=== PATIENT | male | born 1950 | race Caucasian/White ===

== ENCOUNTER 2018-02-06 07:37 | Inpatient (IN) | payer MEDICARE, OTHER ==
[2018-02-06 07:52] LABS: ABSOLUTE BASOPHILS # (AUTO) 0.1 10^3/uL (0.0-0.2); ABSOLUTE EOSINOPHILS # (AUTO) 0.1 10^3/uL (0.0-0.6); ABSOLUTE LYMPHOCYTES (AUTO) 4.6 10^3/uL (0.5-4.7); ABSOLUTE MONOCYTES (AUTO) 0.9 10^3/uL (0.1-1.4); ABSOLUTE NEUT (AUTO) 6.2 10^3/uL (1.7-8.2); BASOPHILS % (AUTO) 0.5 % (0-2); EOSINOPHILS % (AUTO) 0.5 % (0-6); HEMATOCRIT 25.2 % (37.9-51.0); HEMOGLOBIN 8.7 g/dL (13.5-17.0); LYMPHOCYTES % (AUTO) 38.9 % (13-45); MEAN CORPUSCULAR HEMOGLOBIN 30.5 pg (27.0-33.4); MEAN CORPUSCULAR HGB CONC 34.3 g/dL (32.0-36.0); MEAN CORPUSCULAR VOLUME 89 fl (80-97); MONOCYTES % (AUTO) 7.2 % (3-13); PLATELET COUNT 617 10^3/uL (150-450); RED BLOOD COUNT 2.84 10^6/uL (4.35-5.55); RED CELL DISTRIBUTION WIDTH 13.7 % (11.5-14.0); SEGMENTED NEUTROPHILS % (AUTO) 52.9 % (42-78); TOTAL CELLS COUNTED % (AUTO) 100 %; WHITE BLOOD COUNT 11.8 10^3/uL (4.0-10.5)
--- NOTE | 2018-02-06 07:57 | ER Document Report ---
ED General - General Stated Complaint: RECTAL BLEEDING Time Seen by Provider: 02/06/18 07:44 TRAVEL OUTSIDE OF THE [place] IN LAST 30 DAYS: No - HPI Notes: Patient is a 67-year-old male with a history of GERD, gout, hypertension, and hemorrhoids who presents to the ED complaining of having rectal bleeding over the last 4 days. Patient states that he had bleeding/stripping with a bowel movement on morning and then again on Wednesday morning. Patient states he did not have any bleeding yesterday, but woke up this morning about 4 hours ago stating that he needed to have a bowel movement and when he went to the bathroom had blood coming out. Pt reports seeing a spot of blood on the bed prior to going to the bathroom and then noting a moderate amount of blood in the toilet thereafter. The blood is bright red and he has not had any black or tarry bleeding aside from his normal as he does take iron. Patient states that he has had a history of external hemorrhoids that needed banding in laser surgery in the past. Patient states that he was feeling a little weak this morning his blood pressure was low when he was standing, but otherwise is feeling well. He has been eating and drinking without any difficulties. He is urinating normally. He has not had any associated pain. Denies any drug allergies. Denies any headache, fever, neck pain, URI, sore throat, chest pain , palpitations, syncope, cough, shortness of breath, wheeze, dyspnea, abdominal pain, nausea/vomiting/diarrhea, urinary retention, dysuria, hematuria, back pain , loss of control of bowel or bladder, numbness/tingling, muscle paralysis/ weakness, or rash. - Related Data Allergies/Adverse Reactions: No Known Allergies Allergy (Unverified 08/13/14 17:46) Past Medical History - Social History Smoking Status: Never Smoker Family History: Reviewed & Not Pertinent - Past Medical History Cardiac Medical History: Reports: Hx Hypertension - Immunizations Hx Diphtheria, Pertussis, Tetanus Vaccination: Yes Review of Systems - Review of Systems -: Yes All other systems reviewed and negative Physical Exam - Vital signs Vitals: BP 117/84 02/06/18 07:42 - Notes Notes: PHYSICAL EXAMINATION: GENERAL: Well-appearing, well-nourished and in no acute distress. HEAD: Atraumatic, normocephalic. EYES: Pupils equal round and reactive to light, extraocular movements intact, sclera anicteric, conjunctiva are normal. ENT: Nares patent and without discharge. oropharynx clear without exudates. No tonsilar hypertrophy or erythema. Moist mucous membranes. NECK: Normal range of motion, supple without lymphadenopathy LUNGS: Breath sounds clear to auscultation bilaterally and equal. No wheezes rales or rhonchi. HEART: Regular rate and rhythm without murmurs, rubs, gallops. ABDOMEN: Soft, nontender, nondistended abdomen. No guarding, no rebound. No masses appreciated. Normal bowel sounds present. No CVA tenderness bilaterally. Rectal: bright red dried blood noted. no active bleeding appreciated. stool is brown and not tarry/black. there are skin tags noted to the anus that appear secondary to previous banding. non-tender. Musculoskeletal: FROM to passive/active. Strength 5+/5. Extremities: No cyanosis, clubbing, or edema b/l. Peripheral pulses 2+. Capillary refill less than 3 seconds. NEUROLOGICAL: Cranial nerves grossly intact. Normal speech, normal gait. Normal sensory, motor exams PSYCH: Normal mood, normal affect. SKIN: Warm, Dry, normal turgor, no rashes or lesions noted. Course - Re-evaluation Re-evalutation: 02/06/18 08:07 I did review with Dr. Sheets who also eval'd the patient. Pt is anemic w/o known previous labs. We will recheck an H/H in 3 hours if patient is still in the ED. Plan to admit pending consult with Surgery as we do not have GI until wednesday. 02/06/18 08:41 [address] did speak with Dr. De Anda, Gen Surg. He states that we can admit here to our hospitalist and he can consult on the floor. I did place a call to our hospitalist and am awaiting a call back. 02/06/18 09:27 I did speak with AJITH Baptiste who accepted patient to medical floor. Pt/family in agreement. - Vital Signs Vital signs: Temp Pulse Resp BP Pulse Ox 75 18 111/62 98 02/06/18 08:56 02/06/18 09:01 02/06/18 09:01 02/06/18 09:01 - Laboratory Result Diagrams: 02/06/18 07:07 02/06/18 07:07 Laboratory results interpreted by me: 02/06/18 02/06/18 07:07 07:07 WBC 11.8 H RBC 2.84 L Hgb 8.7 L Hct 25.2 L Plt Count 617 H Chloride 108 H Glucose 155 H ALT 86 H Total Protein 5.9 L Albumin 3.3 L Discharge - Discharge Clinical Impression: Lower GI bleed Anemia Qualifiers: Anemia type: unspecified type Qualified Code(s): D64.9 - Anemia, unspecified Condition: Stable Disposition: ADMITTED INPATIENT Admitting Provider: Hospitalist - AJITH Baptiste Unit Admitted: Medical Floor Referrals: HILLARY FINLEY PA-C [Primary Care Provider] - Follow up as needed
[2018-02-06] MEDS: NORMAL SALINE 1000 ML 1,000 ML IV PRN ×3 (08:11→12:26)
[2018-02-06 08:25] LABS: ALANINE AMINOTRANSFERASE 86 U/L (21-72); ALBUMIN 3.3 g/dL (3.5-5.0); ALKALINE PHOSPHATASE 76 U/L (38-126); ANION GAP 10 (5-19); ASPARTATE AMINO TRANSFERASE 50 U/L (17-59); BILIRUBIN,DIRECT 0.2 mg/dL (0.0-0.4); BILIRUBIN,TOTAL 0.3 mg/dL (0.2-1.3); BLOOD UREA NITROGEN 16 mg/dL (7-20); CARBON DIOXIDE 24 mmol/L (22-30); CHLORIDE 108 mmol/L (98-107); GLUCOSE 155 mg/dL (75-110); POTASSIUM 4.7 mmol/L (3.6-5.0); SODIUM 142.3 mmol/L (137-145); TOTAL PROTEIN 5.9 g/dL (6.3-8.2)
[2018-02-06 10:12] LABS: APPEARANCE,URINE CLEAR; BILIRUBIN,URINE NEGATIVE (NEGATIVE); COLOR,URINE YELLOW; GLUCOSE, URINE NEGATIVE (NEGATIVE); KETONES,URINE NEGATIVE (NEGATIVE); LEUKOCYTE ESTERASE,URINE NEGATIVE (NEGATIVE); NITRITE,URINE NEGATIVE (NEGATIVE); PROTEIN,URINE NEGATIVE (NEGATIVE); URINE SPECIFIC GRAVITY 1.015; UROBILINOGEN,URINE NEGATIVE mg/dL (<2.0)
[2018-02-06] MEDS: AMLODIPINE BESYLATE 10 MG TABLET PO SCH (12:22)
[2018-02-06] MEDS: LISINOPRIL 10 MG TABLET PO SCH (12:22)
[2018-02-06] MEDS: CETIRIZINE 10 MG TABLET PO SCH (12:23)
[2018-02-06 13:07] LABS: HEMATOCRIT 19.8 % (37.9-51.0); MEAN CORPUSCULAR HEMOGLOBIN 31.5 pg (27.0-33.4); MEAN CORPUSCULAR HGB CONC 35.5 g/dL (32.0-36.0); MEAN CORPUSCULAR VOLUME 89 fl (80-97); PLATELET COUNT 409 10^3/uL (150-450); RED BLOOD COUNT 2.23 10^6/uL (4.35-5.55); RED CELL DISTRIBUTION WIDTH 13.8 % (11.5-14.0); WHITE BLOOD COUNT 10.8 10^3/uL (4.0-10.5)
[2018-02-06] MEDS ORDERED: NORMAL SALINE 250 ML IV PRN ×2 (13:17)
[2018-02-06] MEDS ORDERED: DEXTROSE 40% GEL 15 GM TUBE PO PRN ×4 (13:18→19:36)
[2018-02-06] MEDS ORDERED: GLUCAGON,HUMAN RECOMB 1 MG INJ SUBCUT PRN ×2 (13:18→19:36)
[2018-02-06] MEDS ORDERED: DEXTROSE 50%-WATER 25 GM/50 ML DISP.SYRIN IV PRN ×4 (13:18→19:36)
--- NOTE | 2018-02-06 18:22 | PDOC H&P ---
History of Present Illness Admission Date/PCP: 02/06/18 09:44 HILLARY FINLEY PA-C Patient complains of: GI BLEEDING History of Present Illness: ARA RAMOS is a 67 year old male who presented to the emergency department following an episode of bloody diarrhea this morning. The patient reports he woke up morning and felt the urge to move his bowels. He went to the bathroom and reports he passed a large bloody stool. He notified his doctor, who told him to go to the emergency department if he should have another episode. The patient states he had no symptoms for 48 hours, but experienced another episode of bright red blood and watery diarrhea this morning. Afterwards he felt faint, dizzy, became diaphoretic, and asked his to call EMS. The patient reports he took 1 dose of Pepto-Bismol prior to EMS arriving to his home in order to alleviate his diarrhea. EMS reports his initial SBP was in the 70s. He received IVF en route to [facility] and his BP quickly stabilized. PMH includes hemorrhoids (multiple have been banded by Dr. Underwood), GERD, HTN, GOUT, HLD, arthritis Upon arrival to the ED the patient's vital signs were BP 117/84 HR 74 RR 18 SPO2 98%. Lab work revealed leukocytosis (WBC 11), anemia (Hgb 8.6), and thrombocytosis (PLAT 671). All other lab work benign. The patient endorsed dizziness, denies blurry vision, denies abdominal pain or chest pain or shortness of breath. The patient was treated with 2 L IVF bolus. Upon assessment, the patient's skin, conjunctivae and mucous membranes are pale. S1- S2. No murmur rubs or gallops. Lungs sounds clear to auscultation. Abdomen is soft, nontender, nondistended. +BS. Rectal exam performed by ED provider, reported dried red blood, no active bleeding. Skin tags noted around the anus appears secondary to previous banding. Repeat Hgb 7.0, plan to transfuse 2U PRBC. Admit to hospitalist service with surgery consulted for GI bleed. Past Medical History Cardiac Medical History: Reports: Hyperlipidema, Hypertension Pulmonary Medical History: Reports: Pneumonia GI Medical History: Reports: Gastroesophageal Reflux Disease Past Surgical History Past Surgical History: Reports: Other - HERNIA REPAIR, HEMRRHOID BANDING, BLEEDING ULCER Social History Information Source: Patient Smoking Status: Former Smoker Last Time Smoked: 2014 Frequency of Alcohol Use: Occasional Hx Recreational Drug Use: No Hx Prescription Drug Abuse: No - Advance Directive Resuscitation Status: Full Code Family History Family History: CAD Parental Family History Reviewed: Yes - HEART DISEASE Children Family History Reviewed: No Sibling(s) Family History Reviewed.: No Medication/Allergy Home Medications: Acetaminophen [Tylenol Extra Strength] 500 mg PO BIDP PRN 02/06/18 Amlodipine Besylate [Norvasc 10 mg Tablet] 10 mg PO DAILY 02/06/18 Cetirizine HCl [Zyrtec 10 mg Tablet] 10 mg PO DAILY 02/06/18 Colchicine [Colcrys 0.6 mg Tablet] 0.6 mg PO DAILY 02/06/18 Ferrous Sulfate, Dried [Slow Release Iron] 144 mg PO BID 02/06/18 Lisinopril [Zestril] 40 mg PO DAILY 02/06/18 Omeprazole 40 mg PO QAM 02/06/18 Pravastatin Sodium [Pravachol] 80 mg PO QHS 02/06/18 Allergies/Adverse Reactions: No Known Allergies Allergy (Unverified 08/13/14 17:46) Review of Systems All systems: reviewed and no additional remarkable complaints except as stated Physical Exam Vital Signs: Temp Pulse Resp BP Pulse Ox 97.8 F 73 16 134/62 H 98 02/06/18 16:27 02/06/18 16:27 02/06/18 16:27 02/06/18 16:27 02/06/18 16:27 Intake & Output 02/05/18 02/06/18 02/07/18 06:59 06:59 06:59 Intake Total 1522 Balance 1522 Weight 98.6 kg General appearance: PRESENT: no acute distress, well-developed Head exam: PRESENT: atraumatic Eye exam: PRESENT: conjunctiva pale, PERRLA Mouth exam: PRESENT: moist, other - PALE MUCOSA Neck exam: PRESENT: full ROM Respiratory exam: PRESENT: clear to auscultation julio, symmetrical, unlabored Cardiovascular exam: PRESENT: +S1, +S2, tachycardia Pulses: PRESENT: normal radial pulses, normal dorsalis pedis pul GI/Abdominal exam: PRESENT: normal bowel sounds, soft. ABSENT: distended, firm , guarding, hernia, tenderness Rectal exam: PRESENT: deferred Extremities exam: PRESENT: full ROM. ABSENT: joint swelling, pedal edema Musculoskeletal exam: PRESENT: ambulatory, full ROM Neurological exam: PRESENT: alert, awake, oriented to person, oriented to place , oriented to time, oriented to situation Psychiatric exam: PRESENT: appropriate affect Skin exam: PRESENT: dry, intact, pallor, warm Results Laboratory Results: 02/06/18 12:27 02/06/18 12:27 WBC 10.8 H RBC 2.23 L Hgb 7.0 L Hct 19.8 L MCV 89 MCH 31.5 MCHC 35.5 RDW 13.8 Plt Count 409 Status: Imported from PACS Assessment & Plan - Diagnosis (1) GI bleed Qualifiers: GI bleed type/associated pathology: unspecified gastrointestinal hemorrhage type Qualified Code(s): K92.2 - Gastrointestinal hemorrhage, unspecified Is this a current diagnosis for this admission?: Yes Plan: Lower GI bleed, unclear etiology but possibilities include bleeding hemorrhoid, undiagnosed diverticulosis Patient endorses multiple blood BMs this morning, none while in ED 2L IVF bolus in ED, continue maintenance IVF Transfuse 2U PRBCs for Hgb 7.0 NPO BID PPI Monitor closely for symptoms of GI bleeding, will need to consider transfer to tertiary facility if actively bleeding Consulted surgery (Dr. Torrez) who agreed to colonoscopy Consulted GI (coverage available 02/08) appreciate their recommendations (2) Anemia Qualifiers: Anemia type: unspecified type Qualified Code(s): D64.9 - Anemia, unspecified Is this a current diagnosis for this admission?: Yes Plan: Secondary to GI bleed Transfuse 2U PRBC for Hgb 7.0 Plan for Post-transfusion CBC Continue to trend Remaining plan as above (3) HTN (hypertension) Qualifiers: Hypertension type: essential hypertension Qualified Code(s): I10 - Essential (primary) hypertension Is this a current diagnosis for this admission?: Yes Plan: History of HTN Home antihypertensives currently on hold due to relatively low BP (4) HLD (hyperlipidemia) Qualifiers: Hyperlipidemia type: pure hypercholesterolemia Qualified Code(s): E78.00 - Pure hypercholesterolemia, unspecified; E78.0 - Pure hypercholesterolemia Is this a current diagnosis for this admission?: Yes Plan: Patient endorses history of HLD Resume home statin therapy (5) GERD (gastroesophageal reflux disease) Is this a current diagnosis for this admission?: Yes Plan: Patient endorses history of GERD Currently on BID Protonix IV - Time Time Spent: 30 to 50 Minutes Medications reviewed and adjusted accordingly: Yes Anticipated discharge: Home - Inpatient Certification Based on my medical assessment, after consideration of the patient's comorbidities, presenting symptoms, or acuity I expect that the services needed warrant INPATIENT care.: Yes I certify that my determination is in accordance with my understanding of Medicare's requirements for reasonable and necessary INPATIENT services [42 CFR 412.3e].: Yes Medical Necessity: Risk of Complication if Not Cared For in Hospital - Plan Summary Plan Summary: TRANSFUSE FOR HGB < 7.0. MONITOR FOR ACTIVE GI BLEEDING. TREND CBC. MAINTENANCE IVF. NPO PLAN FOR COLONOSCOPY
[2018-02-06] MEDS ORDERED: POLYETHYLENE GLYCOL 3350 POWDER 17 GM/1 PACKET PO ONE (19:38)
[2018-02-06] MEDS ORDERED: BISACODYL 5 MG TABEC PO ONE (19:39)
[2018-02-06] MEDS ORDERED: POLYETHYLENE GLYCOL 3350 POWDER 17 GM/1 PACKET ONE (21:41)
[2018-02-06] MEDS: PANTOPRAZOLE SODIUM 40 MG VIAL IV SCH (21:59)
[2018-02-06] MEDS: ATORVASTATIN CALCIUM 20 MG TABLET PO SCH (22:01)
[2018-02-06 22:23] LABS: ABSOLUTE EOSINOPHILS # (AUTO) 0.1 10^3/uL (0.0-0.6); ABSOLUTE MONOCYTES (AUTO) 0.7 10^3/uL (0.1-1.4); ABSOLUTE NEUT (AUTO) 4.5 10^3/uL (1.7-8.2); BASOPHILS % (AUTO) 0.3 % (0-2); EOSINOPHILS % (AUTO) 0.7 % (0-6); HEMATOCRIT 24.2 % (37.9-51.0); HEMOGLOBIN 8.4 g/dL (13.5-17.0); LYMPHOCYTES % (AUTO) 35.7 % (13-45); MEAN CORPUSCULAR HEMOGLOBIN 30.1 pg (27.0-33.4); MEAN CORPUSCULAR HGB CONC 34.6 g/dL (32.0-36.0); MEAN CORPUSCULAR VOLUME 87 fl (80-97); MONOCYTES % (AUTO) 8.9 % (3-13); PLATELET COUNT 353 10^3/uL (150-450); RED BLOOD COUNT 2.78 10^6/uL (4.35-5.55); RED CELL DISTRIBUTION WIDTH 14.2 % (11.5-14.0); SEGMENTED NEUTROPHILS % (AUTO) 54.4 % (42-78); TOTAL CELLS COUNTED % (AUTO) 100 %; WHITE BLOOD COUNT 8.3 10^3/uL (4.0-10.5)
[2018-02-07 01:14] LABS: HEMATOCRIT 28.4 % (37.9-51.0); HEMOGLOBIN 9.8 g/dL (13.5-17.0); MEAN CORPUSCULAR HEMOGLOBIN 29.9 pg (27.0-33.4); MEAN CORPUSCULAR HGB CONC 34.6 g/dL (32.0-36.0); MEAN CORPUSCULAR VOLUME 86 fl (80-97); PLATELET COUNT 303 10^3/uL (150-450); RED BLOOD COUNT 3.29 10^6/uL (4.35-5.55); RED CELL DISTRIBUTION WIDTH 14.5 % (11.5-14.0); WHITE BLOOD COUNT 10.9 10^3/uL (4.0-10.5)
[2018-02-07 04:38] LABS: INTERNATIONAL RATION (INR) 0.96; PROTHROMBIN TIME 13.3 SEC (11.4-15.4)
[2018-02-07 04:41] LABS: HEMATOCRIT 25.5 % (37.9-51.0); HEMOGLOBIN 9.1 g/dL (13.5-17.0); MEAN CORPUSCULAR HEMOGLOBIN 30.7 pg (27.0-33.4); MEAN CORPUSCULAR HGB CONC 35.8 g/dL (32.0-36.0); MEAN CORPUSCULAR VOLUME 86 fl (80-97); PLATELET COUNT 381 10^3/uL (150-450); RED BLOOD COUNT 2.98 10^6/uL (4.35-5.55); RED CELL DISTRIBUTION WIDTH 14.8 % (11.5-14.0); WHITE BLOOD COUNT 10.3 10^3/uL (4.0-10.5)
[2018-02-07 04:50] LABS: ALANINE AMINOTRANSFERASE 68 U/L (21-72); ALBUMIN 3.1 g/dL (3.5-5.0); ALKALINE PHOSPHATASE 63 U/L (38-126); ANION GAP 10 (5-19); ASPARTATE AMINO TRANSFERASE 36 U/L (17-59); BILIRUBIN,DIRECT 0.2 mg/dL (0.0-0.4); BILIRUBIN,TOTAL 0.4 mg/dL (0.2-1.3); BLOOD UREA NITROGEN 8 mg/dL (7-20); CALCIUM 8.7 mg/dL (8.4-10.2); CARBON DIOXIDE 22 mmol/L (22-30); CHLORIDE 113 mmol/L (98-107); GLUCOSE 92 mg/dL (75-110); PHOSPHORUS 4.6 mg/dL (2.5-4.5); POTASSIUM 4.4 mmol/L (3.6-5.0); SODIUM 144.5 mmol/L (137-145); TOTAL PROTEIN 5.4 g/dL (6.3-8.2)
--- NOTE | 2018-02-07 05:30 | PDOC CONSULTATION ---
Consultation Consult Date: 02/06/18 Consult reason:: rectal bleding History of Present Illness Admission Date/PCP: 02/06/18 09:44 HILLARY FINLEY PA-C History of Present Illness: ARA RAMOS is a 67 year old male with a history of intermittent rectal bleeding. He was seen at the request of the hospitalist service. The patient reports dizziness at home, fecal urgency, and jeff hematochezia. The patient denies melena. The patient states that he will awaken in the middle of night with abdominal cramping and have a large bloody bowel movement. The patient's hemoglobin was measured at 7. Patient's last colonoscopy was more than 2 years ago. He reports that there were 3 polyps removed. The patient has been treated for hemorrhoids with rubber band ligation 2 and "laser therapy". None of these treatments have worked. The patient will have bleeding at random times , not only associated with bowel movements. The patient has normal bowel movements in between these episodes of bleeding. Nothing makes his bleeding worse. Nothing makes his bleeding better. The patient denies significant rectal pain. He does not take any blood thinners or antiplatelets. His last EGD was approximately 1 year ago and was normal per his report. Past Medical History Cardiac Medical History: Reports: Hyperlipidema, Hypertension Pulmonary Medical History: Reports: Pneumonia GI Medical History: Reports: Gastroesophageal Reflux Disease, Peptic Ulcer Disease, Other - Hemorrhoids Past Surgical History Past Surgical History: Reports: Other - HERNIA REPAIR, HEMRRHOID BANDING, BLEEDING ULCER Social History Smoking Status: Former Smoker Last Time Smoked: 2014 Frequency of Alcohol Use: Occasional Hx Recreational Drug Use: No Hx Prescription Drug Abuse: No - Advance Directive Resuscitation Status: Full Code Family History Family History: CAD Parental Family History Reviewed: Yes Children Family History Reviewed: Yes Sibling(s) Family History Reviewed.: Yes Medication/Allergy Home Medications: Acetaminophen [Tylenol Extra Strength] 500 mg PO BIDP PRN 02/06/18 Amlodipine Besylate [Norvasc 10 mg Tablet] 10 mg PO DAILY 02/06/18 Cetirizine HCl [Zyrtec 10 mg Tablet] 10 mg PO DAILY 02/06/18 Colchicine [Colcrys 0.6 mg Tablet] 0.6 mg PO DAILY 02/06/18 Ferrous Sulfate, Dried [Slow Release Iron] 144 mg PO BID 02/06/18 Lisinopril [Zestril] 40 mg PO DAILY 02/06/18 Omeprazole 40 mg PO QAM 02/06/18 Pravastatin Sodium [Pravachol] 80 mg PO QHS 02/06/18 Allergies/Adverse Reactions: No Known Allergies Allergy (Unverified 08/13/14 17:46) Review of Systems Constitutional: PRESENT: fatigue. ABSENT: chills, fever(s), headache(s) Eyes: ABSENT: visual disturbances Ears: ABSENT: hearing changes Nose, Mouth, and Throat: ABSENT: sore throat Cardiovascular: PRESENT: palpitations. ABSENT: chest pain Respiratory: ABSENT: dyspnea Gastrointestinal: PRESENT: hematochezia. ABSENT: abdominal pain, nausea, vomiting Musculoskeletal: ABSENT: back pain Integumentary: ABSENT: pruritus, rash Neurological: PRESENT: dizziness, syncope, weakness. ABSENT: confusion, memory loss Psychiatric: ABSENT: anxiety, depression, hallucinations Endocrine: ABSENT: cold intolerance, heat intolerance Physical Exam Vital Signs: Temp Pulse Resp BP Pulse Ox 98.7 F 73 12 115/54 L 97 02/06/18 17:56 02/06/18 17:56 02/06/18 17:56 02/06/18 17:56 02/06/18 17:56 Intake & Output 02/05/18 02/06/18 02/07/18 06:59 06:59 06:59 Intake Total 1852 Balance 1852 Weight 98.6 kg General appearance: PRESENT: no acute distress Head exam: PRESENT: atraumatic, normocephalic Eye exam: PRESENT: EOMI, PERRLA. ABSENT: scleral icterus Mouth exam: PRESENT: neck supple Teeth exam: ABSENT: poor dentation Neck exam: ABSENT: lymphadenopathy, meningismus, tenderness, thyromegaly, tracheal deviation Respiratory exam: PRESENT: clear to auscultation julio, unlabored. ABSENT: chest wall tenderness, retraction, tachypnea, wheezes Cardiovascular exam: PRESENT: RRR Pulses: PRESENT: normal radial pulses Vascular exam: PRESENT: normal capillary refill. ABSENT: pallor GI/Abdominal exam: PRESENT: normal bowel sounds, soft. ABSENT: distended, guarding, tenderness Rectal exam: PRESENT: hemorrhoids - Prolapsed internal hemorrhoids, with external anal skin tags., normal rectal tone. ABSENT: bloody stool Extremities exam: ABSENT: clubbing, pedal edema Musculoskeletal exam: ABSENT: deformity Neurological exam: PRESENT: alert, awake, oriented to person, oriented to place , oriented to time, oriented to situation, CN II-XII grossly intact. ABSENT: motor sensory deficit Psychiatric exam: ABSENT: agitated, anxious, depressed Focused psych exam: ABSENT: delusional Skin exam: ABSENT: cyanosis, erythema, jaundice Results Laboratory Results: 02/06/18 12:27 02/06/18 12:27 WBC 10.8 H RBC 2.23 L Hgb 7.0 L Hct 19.8 L MCV 89 MCH 31.5 MCHC 35.5 RDW 13.8 Plt Count 409 Assessment & Plan - Diagnosis (1) Internal hemorrhoids with complication Is this a current diagnosis for this admission?: Yes (2) GI bleed Qualifiers: GI bleed type/associated pathology: unspecified gastrointestinal hemorrhage type Qualified Code(s): K92.2 - Gastrointestinal hemorrhage, unspecified Is this a current diagnosis for this admission?: Yes - Plan Summary Plan Summary: This is a 67-year-old male with large amounts of rectal bleeding. His hemoglobin was measured at 7. The patient is undergoing transfusion right now. Patient has large prolapsing internal hemorrhoids and external skin tags. His internal hemorrhoids are grade 3-4. The patient's last colonoscopy was more than 2 years ago. The patient had 3 polyps removed. He reports that he does have diverticulosis. His bleeding could be related to any number of factors. His large prolapsing internal hemorrhoids could certainly be contributing to this. The patient could also have an unknown AV malformation or diverticular bleeding. I have recommended a colonoscopy to evaluate this. The patient will also require a surgical hemorrhoidectomy. Rubber band ligation will be completely ineffective for his large, prolapsing hemorrhoids. I will plan for a bowel prep tonight. I will reevaluate patient in the morning to ensure that he is fit for surgery. N.p.o. after midnight.
[2018-02-07] MEDS: LANSOPRAZOLE 30 MG TAB.RAP.DR PO SCH (06:00)
--- NOTE | 2018-02-07 08:48 | PDOC PROGRESS REPORT ---
Subjective Progress Note for:: 02/07/18 Reason For Visit: GI BLEED Patient had another bloody bowel movement this morning. He is status post upper and lower endoscopy and 2 years ago respectively; remote history of peptic ulcer disease with exploratory laparotomy while he was in high school. Colonoscopy revealed 3 polyps and diverticulosis. Patient's current problems consist of fecal urgency with bloating and then a rapid bowel movement with bright red blood per rectum. He has never been diagnosed with colitis, irritable bowel syndrome, no reported family history of colon or rectal cancer or inflammatory bowel disease. Physical Exam Vital Signs: Temp Pulse Resp BP Pulse Ox 98.2 F 74 12 128/74 H 97 02/07/18 07:31 02/07/18 07:31 02/07/18 07:31 02/07/18 07:31 02/07/18 07:31 Intake & Output 02/06/18 02/07/18 02/08/18 06:59 06:59 06:59 Intake Total 2060 Output Total 350 Balance 1710 Weight 99.6 kg General appearance: PRESENT: no acute distress, other - Looks pale GI/Abdominal exam: PRESENT: other - Scar midline; no peritoneal signs no rigidity no Rectal exam: PRESENT: other - Multiple external hemorrhoids, some edematous, nonthrombosed ; some collapsed Results Laboratory Results: 02/07/18 03:57 02/07/18 03:57 02/06/18 02/06/18 02/07/18 12:27 21:35 00:57 WBC 10.8 H 8.3 10.9 H RBC 2.23 L 2.78 L 3.29 L Hgb 7.0 L 8.4 L 9.8 L Hct 19.8 L 24.2 L 28.4 L MCV 89 87 86 MCH 31.5 30.1 29.9 MCHC 35.5 34.6 34.6 RDW 13.8 14.2 H 14.5 H Plt Count 409 353 303 Seg Neutrophils % 54.4 Lymphocytes % 35.7 Monocytes % 8.9 Eosinophils % 0.7 Basophils % 0.3 Absolute Neutrophils 4.5 Absolute Lymphocytes 3.0 Absolute Monocytes 0.7 Absolute Eosinophils 0.1 Absolute Basophils 0.0 Sodium Potassium Chloride Carbon Dioxide Anion Gap BUN Creatinine Est GFR ( Amer) Est GFR (Non-Af Amer) Glucose Calcium Phosphorus Magnesium Total Bilirubin AST ALT Alkaline Phosphatase Total Protein Albumin 02/07/18 02/07/18 03:57 03:57 WBC 10.3 RBC 2.98 L Hgb 9.1 L Hct 25.5 L MCV 86 MCH 30.7 MCHC 35.8 RDW 14.8 H Plt Count 381 Seg Neutrophils % Lymphocytes % Monocytes % Eosinophils % Basophils % Absolute Neutrophils Absolute Lymphocytes Absolute Monocytes Absolute Eosinophils Absolute Basophils Sodium 144.5 Potassium 4.4 Chloride 113 H Carbon Dioxide 22 Anion Gap 10 BUN 8 Creatinine 0.96 Est GFR ( Amer) > 60 Est GFR (Non-Af Amer) > 60 Glucose 92 Calcium 8.7 Phosphorus 4.6 H Magnesium 2.1 Total Bilirubin 0.4 AST 36 ALT 68 Alkaline Phosphatase 63 Total Protein 5.4 L Albumin 3.1 L 02/07/18 03:57 NT-Pro-B Natriuret Pep 141 Assessment & Plan - Diagnosis (1) Lower GI bleed Is this a current diagnosis for this admission?: Yes Plan: Impression: GI bleeding possibly due to internal and external hemorrhoids but clinical scenario inconsistent with solely hemorrhoidal bleeding. Concern patient may have some of proximal source of GI bleed. This was explained to the patient. Recommendations: 1. Continue bowel prep, and plan for upper and lower endoscopy, possible biopsy , possible polypectomy 2. If endoscopy otherwise negative, will offer patient operative hemorrhoidectomy. Of note patient has a history of internal hemorrhoidectomy banding, laser treatment [address] Underwood (2) External hemorrhoids Is this a current diagnosis for this admission?: Yes (3) Internal hemorrhoids with complication Is this a current diagnosis for this admission?: Yes
[2018-02-07] MEDS: PANTOPRAZOLE SODIUM 40 MG VIAL IV SCH ×2 (09:14→21:19)
[2018-02-07] MEDS ORDERED: (PENDING PHARMACY ID) (Lisinopril [Zestril] 40 MG) PO SCH (10:00)
[2018-02-07] MEDS ORDERED: NALOXONE HCL INJ/PF 0.4 MG/1 ML SDV ONE (12:45)
[2018-02-07] MEDS ORDERED: ONDANSETRON HCL INJ/PF 4 MG/2 ML SDV ONE ×2 (12:45→23:42)
[2018-02-07] MEDS ORDERED: DIPHENHYDRAMINE HCL 50 MG/ML VIAL ONE (12:45)
[2018-02-07] MEDS ORDERED: GLUCAGON,HUMAN RECOMB 1 MG INJ ONE (12:46)
[2018-02-07] MEDS ORDERED: MIDAZOLAM 2 MG/2 ML INJ ONE (12:46)
[2018-02-07] MEDS ORDERED: EPINEPHRINE INJ 1 MG/10 ML DISP.SYRIN ONE (12:46)
[2018-02-07] MEDS ORDERED: FLUMAZENIL INJ 0.5 MG/5 ML VIAL ONE (12:46)
[2018-02-07] MEDS: FENTANYL CITRATE INJ/PF 100 MCG/2 ML AMPUL ONE ×2 (13:17→13:42)
[2018-02-07] MEDS: MIDAZOLAM 2 MG/2 ML INJ ONE ×3 (13:19→13:39)
[2018-02-07] MEDS ORDERED: SIMETHICONE 40 MG/0.6 ML DROPS 30ML ONE (13:48)
--- NOTE | 2018-02-07 13:52 | Progress Note ---
Provider Note Provider Note: GI consulted at the same time that procedure is being by Dr Rocha of Surgery please see his note for further follow up he does not need to be scoped twice I have cancelled the GI consult further recommendations per Dr Rocha of surgery.
--- NOTE | 2018-02-07 14:22 | Operative Report ---
Operative Report DATE OF SURGERY: 02/07/18 PREOPERATIVE DIAGNOSIS: 1. Gastrointestinal hemorrhage. 2. History of internal and external hemorrhoid with hemorrhoidal banding. 3. Sigmoid diverticulosis. 4. History of peptic ulcer disease POSTOPERATIVE DIAGNOSIS: Same with. 1. No active upper or lower gastrointestinal hemorrhage. 2. Evidence of previous anal canal intervention consistent with internal hemorrhoidectomy. 3. Distal chronic esophagitis. 4. External hemorrhoids with edema. 5. Colonic polyp at 28 cm from anal verge OPERATION: 1. Esophagogastroduodenoscopy with photodocumentation. 2. Total colonoscopy to cecum. 3. Cold forceps polypectomy of sessile polyp at 28 cm from anal verge SURGEON: BRIDGETTE JOSUE ANESTHESIA: Moderate Sedation TISSUE REMOVED OR ALTERED: Polyp COMPLICATIONS: None ESTIMATED BLOOD LOSS: Scant INTRAOPERATIVE FINDINGS: See below PROCEDURE: Patient was taken from the floor to the endoscopy suite on the fifth floor where conscious sedation was induced. Appropriate monitoring devices were attached. Surgical and surgical timeout conducted. Hypopharynx was adhesive ties oral mouthpiece inserted and flexible adult upper endoscope was advanced through the oropharynx, down the esophagus through the stomach into the duodenum. This is well tolerated by the patient. The first and second portions of the duodenum were cannulated. There was no evidence of active bleeding or clot. The duodenal mucosa was normal. The scope was withdrawn to the pylorus which was normal. No evidence of active peptic ulcer disease. The stomach was noted to be free of food, blood, or bile. There was no endoscopic evidence of gastritis. The scope was retroflexed getting a good look at the GE junction from the stomach side, as well as the gastric cardia. Again no evidence of clot or blood. The scope was straightened out and brought back through the GE junction. The Z line was at approximately 38 cm from the incisor. There was some irregularity to the Z line consistent with chronic esophagitis. No evidence of stricture, tumor, or bleeding. No biopsy was obtained. The scope was withdrawn through the esophagus. No evidence of, varix. Scope was withdrawn to the patient's oral pharynx. He tolerated the procedure well. The upper endoscopic portion of the procedure was concluded. The patient was in the left lateral decubitus position needs to the chest. A rectal exam was performed. Externally the patient had external hemorrhoids in the anterior and posterior hemispheres with the posterior components moderately edematous. There was no evidence of thrombosis. There was no true fissure. The posterior hemorrhoidal complexes were associated with internal component. Sphincter tone was felt to be satisfactory. The flexible pediatric colonoscope was advanced to the anorectal canal all the way to the cecum. This was a reasonably well-prepped bowel. There was residual green stool which irrigated out reasonably well. Transillumination of the anterior abdominal wall, and visualization of the ileocecal valve confirmed cecal intubation. There was no evidence of pathology in the cecum. The scope was withdrawn to the length of the colon check in the mucosa carefully. There was no evidence of tumor or stricture or bleeding. There were no clots. At 28 cm from the anal verge was a small sessile polyp which was removed using cold forceps device. All. There were 1-3 scattered diverticulosis of the sigmoid colon only. The anal canal was carefully examined both prograde and retrograde. There was evidence of scarring without stricture consistent with previous internal hemorrhoidal banding. There were minimal internal hemorrhoids remaining. The anal pathology consisted of the external hemorrhoids previously noted. Photograph taken. This concluded the operation. The patient tolerated the procedure well and taken back to the floor after recovering uneventfully. Per surveillance guidelines, patient will be an appropriate candidate for surveillance colonoscopy in 3 years given a history of polyp removed today. We will keep the patient n.p.o. after midnight and plan for hemorrhoidectomy tomorrow.
[2018-02-07] MEDS ORDERED: METRONIDAZOLE 500 MG/NS RTU 500 MG/100 ML RTUPB IV PRN (14:23)
[2018-02-07 15:41] LABS: ABSOLUTE MONOCYTES (AUTO) 0.8 10^3/uL (0.1-1.4); ABSOLUTE NEUT (AUTO) 6.2 10^3/uL (1.7-8.2); BASOPHILS % (AUTO) 0.4 % (0-2); EOSINOPHILS % (AUTO) 0.3 % (0-6); HEMATOCRIT 24.6 % (37.9-51.0); HEMOGLOBIN 8.5 g/dL (13.5-17.0); LYMPHOCYTES % (AUTO) 22.4 % (13-45); MEAN CORPUSCULAR HEMOGLOBIN 29.8 pg (27.0-33.4); MEAN CORPUSCULAR HGB CONC 34.6 g/dL (32.0-36.0); MEAN CORPUSCULAR VOLUME 86 fl (80-97); MONOCYTES % (AUTO) 8.3 % (3-13); PLATELET COUNT 349 10^3/uL (150-450); RED BLOOD COUNT 2.86 10^6/uL (4.35-5.55); RED CELL DISTRIBUTION WIDTH 14.7 % (11.5-14.0); SEGMENTED NEUTROPHILS % (AUTO) 68.6 % (42-78); TOTAL CELLS COUNTED % (AUTO) 100 %; WHITE BLOOD COUNT 9.1 10^3/uL (4.0-10.5)
[2018-02-07] MEDS: LISINOPRIL 10 MG TABLET PO SCH (16:24)
[2018-02-07] MEDS: AMLODIPINE BESYLATE 10 MG TABLET PO SCH (16:26)
[2018-02-07] MEDS: CETIRIZINE 10 MG TABLET PO SCH (16:26)
--- NOTE | 2018-02-07 19:11 | PDOC TRANSFER SUMMARY ---
General Admission Date/PCP: 02/07/18 13:35 HILLARY FINLEY PA-C Admission Date: 02/06/18 Transfer Date: 02/07/18 Accepting Facility: [facility] Accepting Physician: DR. RUTH Resuscitation Status: Full Code - Transfer Diagnosis (1) GI bleed Is this a current diagnosis for this admission?: Yes (2) Anemia Is this a current diagnosis for this admission?: Yes (3) HTN (hypertension) Is this a current diagnosis for this admission?: Yes (4) HLD (hyperlipidemia) Is this a current diagnosis for this admission?: Yes (5) GERD (gastroesophageal reflux disease) Is this a current diagnosis for this admission?: Yes - Transfer Medications Home Medications: Acetaminophen [Tylenol Extra Strength] 500 mg PO BIDP PRN 02/06/18 Amlodipine Besylate [Norvasc 10 mg Tablet] 10 mg PO DAILY 02/06/18 Cetirizine HCl [Zyrtec 10 mg Tablet] 10 mg PO DAILY 02/06/18 Colchicine [Colcrys 0.6 mg Tablet] 0.6 mg PO DAILY 02/06/18 Ferrous Sulfate, Dried [Slow Release Iron] 144 mg PO BID 02/06/18 Lisinopril [Zestril] 40 mg PO DAILY 02/06/18 Omeprazole 40 mg PO QAM 02/06/18 Pravastatin Sodium [Pravachol] 80 mg PO QHS 02/06/18 Transfer Medications: Current Medications Amlodipine Besylate (Norvasc 10 Mg Tablet) 10 mg PO DAILY@1200 BLADIMIR Stop: 03/08/18 11:59 Last Admin: 02/07/18 16:26 Dose: 10 mg Atorvastatin Calcium (Lipitor 20 Mg Tablet) 20 mg PO QHS BLADIMIR Stop: 03/08/18 21:59 Last Admin: 02/06/18 22:01 Dose: 20 mg Cetirizine HCl (Zyrtec 10 Mg Tablet) 10 mg PO DAILY@1200 BLADIMIR Stop: 03/08/18 11:59 Last Admin: 02/07/18 16:26 Dose: 10 mg Dextrose (Dextrose Inj 50% Syringe (25 Gm/50 Ml)) 12.5 gm IV PRN PRN; Protocol PRN Reason: FOR BG 50-69 IN ALERT PATIENT Stop: 03/08/18 19:35 Dextrose (Dextrose Inj 50% Syringe (25 Gm/50 Ml)) 25 gm IV PRN PRN; Protocol PRN Reason: See Label Comments Stop: 03/08/18 19:35 Glucagon (Glucagen Inj 1 Mg Vial) 1 mg SUBCUT PRN PRN; Protocol PRN Reason: Evaluate for BG < 70 Stop: 03/08/18 19:35 Glucose (Glutose 40% Gel 15 Gm Tube) 30 gm PO PRN PRN; Protocol PRN Reason: FOR BG < 50 IN ALERT PATIENT Stop: 03/08/18 19:35 Glucose (Glutose 40% Gel 15 Gm Tube) 15 gm PO PRN PRN; Protocol PRN Reason: For BG 50-69 in Alert Patient Stop: 03/08/18 19:35 Sodium Chloride (Nacl 0.9% 1000 Ml Iv Soln) 1,000 mls @ 100 mls/hr IV CONTINUOUS PRN PRN Reason: THIS MED IS NOT "PRN" Stop: 03/08/18 11:04 Last Infusion: 02/07/18 06:19 Dose: 100 mls/hr Metronidazole (Flagyl Rtu 500 Mg/Ns 100ml Premix) 500 mg in 100 mls @ 100 mls/ hr IV ONCALL PRN PRN Reason: THIS MED IS NOT "PRN" Stop: 02/14/18 14:22 Lansoprazole (Prevacid 30 Mg Odt Tablet) 30 mg PO Q6AM [facility] Stop: 03/09/18 05:59 Last Admin: 02/07/18 06:00 Dose: Not Given Lisinopril (Prinivil 10 Mg Tablet) 40 mg PO DAILY@1200 BLADIMIR Stop: 03/08/18 11:59 Last Admin: 02/07/18 16:24 Dose: 40 mg Pantoprazole Sodium (Protonix Iv Inj 40 Mg Vial) 40 mg IV Q12 [facility] Stop: 02/09/18 21:59 Last Admin: 02/07/18 09:14 Dose: 40 mg - Allergies Allergies/Adverse Reactions: No Known Allergies Allergy (Unverified 08/13/14 17:46) Hospital Course Hospital Course: ARA RAMOS is a 67 year old male with a PMH includes hemorrhoids (multiple have been banded by Dr. Underwood), GERD, HTN, GOUT, HLD, arthritis. He presented to the emergency department following an episode of bloody diarrhea this morning. The patient reports he woke up (02/03) morning and felt the urge to move his bowels. He went to the bathroom and reports he passed a large bloody stool. He notified his doctor, who told him to go to the emergency department if he should have another episode. The patient states he had no symptoms for 48 hours, but experienced another episode of bright red blood and watery diarrhea this morning. Afterwards he felt faint, dizzy, became diaphoretic, and asked his to call EMS. The patient reports he took 1 dose of Pepto-Bismol prior to EMS arriving to his home in order to alleviate his diarrhea. EMS reports his initial SBP was in the 70s. He received IVF en route to [facility] and his BP quickly stabilized. Upon arrival to the ED the patient's vital signs were BP 117/84 HR 74 RR 18 SPO2 98%. Lab work revealed leukocytosis (WBC 11), anemia (Hgb 8.6), and thrombocytosis (PLAT 671). All other lab work benign. The patient endorsed dizziness, denies blurry vision, denies abdominal pain or chest pain or shortness of breath. The patient was treated with 2 L IVF bolus. Upon assessment, the patient's skin, conjunctivae and mucous membranes are pale. S1- S2. No murmur rubs or gallops. Lungs sounds clear to auscultation. Abdomen is soft, nontender, nondistended. +BS. Rectal exam performed by ED provider, reported dried red blood, no active bleeding. Skin tags noted around the anus appears secondary to previous banding. Repeat Hgb 7.0, plan to transfuse 2U PRBC. Admit to hospitalist service with surgery consulted for GI bleed. Posttransfusion Hgb 9.8. Surgery notified about patient's case, agreed to perform an EGD and colonoscopy the following day. The patient did experience 2 episodes of BRB in stool overnight while prepping for colonoscopy. Surgery was made aware, they decided to pursue EGD and colonoscopy. The results of the studies are as follows, EGD: No evidence of clot or blood, some irregularity to the Z line consistent with chronic esophagitis. Colonoscopy: exterior hemorrhoids, no evidence of tumor, stricture or bleeding. No clots. Small vessel polyp was removed. Scattered diverticulosis seen in the sigmoid colon. Minimal internal hemorrhoids. According to the surgeon, he could not identify the source of the patient's GI bleeding. He is concerned about the possibility of an AVM and states we do not have a scope long enough to diagnose the source of bleeding. Dr. Solis recommends a bleeding scan and PUSH endoscopy, which are services that are not offered at [facility]. He recommends transfer to a tertiary facility. [facility] was contacted and Dr. Ruth (hospitalist) graciously accepted. Plan to monitor serial Hgb while patient is waiting for transfer, plan to transfuse if Hgb drops below 8.0. Physical Exam Vital Signs: Temp Pulse Resp BP Pulse Ox 98.0 F 75 17 136/63 H 95 02/07/18 11:30 02/07/18 14:20 02/07/18 14:20 02/07/18 14:20 02/07/18 14:20 Intake & Output 02/06/18 02/07/18 02/08/18 06:59 06:59 06:59 Intake Total 900 Balance 900 General appearance: PRESENT: no acute distress, well-developed, well-nourished Eye exam: PRESENT: conjunctiva pale, PERRLA Mouth exam: PRESENT: moist, other - PALE MUCOSA Neck exam: PRESENT: full ROM Respiratory exam: PRESENT: clear to auscultation julio, symmetrical, unlabored Cardiovascular exam: PRESENT: RRR, +S1, +S2 Pulses: PRESENT: normal radial pulses, normal dorsalis pedis pul Vascular exam: PRESENT: normal capillary refill GI/Abdominal exam: PRESENT: normal bowel sounds, soft. ABSENT: distended, firm , guarding, tenderness Rectal exam: PRESENT: deferred Extremities exam: PRESENT: full ROM Musculoskeletal exam: PRESENT: ambulatory, full ROM Neurological exam: PRESENT: alert, awake, oriented to person, oriented to place , oriented to time, oriented to situation Psychiatric exam: PRESENT: appropriate affect Skin exam: PRESENT: dry, intact, pallor Results Laboratory Results: 02/07/18 15:12 02/07/18 15:12 WBC 9.1 RBC 2.86 L Hgb 8.5 L Hct 24.6 L MCV 86 MCH 29.8 MCHC 34.6 RDW 14.7 H Plt Count 349 Seg Neutrophils % 68.6 Lymphocytes % 22.4 Monocytes % 8.3 Eosinophils % 0.3 Basophils % 0.4 Absolute Neutrophils 6.2 Absolute Lymphocytes 2.0 Absolute Monocytes 0.8 Absolute Eosinophils 0.0 Absolute Basophils 0.0 Status: Imported from PACS Plan Discharge Plan: TRANSFER TO [facility] Time Spent: Greater than 30 Minutes
[2018-02-07] MEDS: ATORVASTATIN CALCIUM 20 MG TABLET PO SCH (21:19)
[2018-02-07 23:57] LABS: ABSOLUTE EOSINOPHILS # (AUTO) 0.1 10^3/uL (0.0-0.6); ABSOLUTE LYMPHOCYTES (AUTO) 4.5 10^3/uL (0.5-4.7); ABSOLUTE MONOCYTES (AUTO) 1.5 10^3/uL (0.1-1.4); ABSOLUTE NEUT (AUTO) 11.3 10^3/uL (1.7-8.2); BASOPHILS % (AUTO) 0.2 % (0-2); EOSINOPHILS % (AUTO) 0.3 % (0-6); HEMATOCRIT 22.9 % (37.9-51.0); LYMPHOCYTES % (AUTO) 26.1 % (13-45); MEAN CORPUSCULAR HEMOGLOBIN 29.9 pg (27.0-33.4); MEAN CORPUSCULAR HGB CONC 34.7 g/dL (32.0-36.0); MEAN CORPUSCULAR VOLUME 86 fl (80-97); MONOCYTES % (AUTO) 8.7 % (3-13); PLATELET COUNT 491 10^3/uL (150-450); RED BLOOD COUNT 2.66 10^6/uL (4.35-5.55); RED CELL DISTRIBUTION WIDTH 14.5 % (11.5-14.0); SEGMENTED NEUTROPHILS % (AUTO) 64.7 % (42-78); TOTAL CELLS COUNTED % (AUTO) 100 %; WHITE BLOOD COUNT 17.4 10^3/uL (4.0-10.5)
[2018-02-08] MEDS: NORMAL SALINE 1000 ML 1,000 ML IV PRN ×2 (05:35→15:08)
[2018-02-08] MEDS: LANSOPRAZOLE 30 MG TAB.RAP.DR PO SCH (05:35)
[2018-02-08 07:41] LABS: HEMATOCRIT 23.7 % (37.9-51.0); HEMOGLOBIN 8.2 g/dL (13.5-17.0); MEAN CORPUSCULAR HEMOGLOBIN 30.2 pg (27.0-33.4); MEAN CORPUSCULAR HGB CONC 34.6 g/dL (32.0-36.0); MEAN CORPUSCULAR VOLUME 87 fl (80-97); PLATELET COUNT 344 10^3/uL (150-450); RED BLOOD COUNT 2.72 10^6/uL (4.35-5.55); RED CELL DISTRIBUTION WIDTH 14.2 % (11.5-14.0); WHITE BLOOD COUNT 13.2 10^3/uL (4.0-10.5)
[2018-02-08 08:12] LABS: ANION GAP 7 (5-19); BLOOD UREA NITROGEN 8 mg/dL (7-20); CALCIUM 8.3 mg/dL (8.4-10.2); CARBON DIOXIDE 23 mmol/L (22-30); CHLORIDE 112 mmol/L (98-107); GLUCOSE 94 mg/dL (75-110); PHOSPHORUS 5.5 mg/dL (2.5-4.5); POTASSIUM 4.1 mmol/L (3.6-5.0); SODIUM 141.9 mmol/L (137-145)
[2018-02-08] MEDS: PANTOPRAZOLE SODIUM 40 MG VIAL IV SCH (09:14)
[2018-02-08] MEDS: AMLODIPINE BESYLATE 10 MG TABLET PO SCH (13:59)
[2018-02-08] MEDS: LISINOPRIL 10 MG TABLET PO SCH (14:00)
[2018-02-08] MEDS: CETIRIZINE 10 MG TABLET PO SCH (14:04)
[2018-02-08 14:23] LABS: HEMATOCRIT 22.2 % (37.9-51.0); MEAN CORPUSCULAR HEMOGLOBIN 30.6 pg (27.0-33.4); MEAN CORPUSCULAR HGB CONC 35.2 g/dL (32.0-36.0); MEAN CORPUSCULAR VOLUME 87 fl (80-97); PLATELET COUNT 359 10^3/uL (150-450); RED BLOOD COUNT 2.55 10^6/uL (4.35-5.55); RED CELL DISTRIBUTION WIDTH 14.7 % (11.5-14.0); WHITE BLOOD COUNT 9.3 10^3/uL (4.0-10.5)
[2018-02-08 14:27] LABS: HEMOGLOBIN 7.8 g/dL (13.5-17.0)
[2018-02-08] MEDS ORDERED: ACETAMINOPHEN 325 MG TABLET PO PRN (20:20)
[2018-02-08] MEDS ORDERED: ACETAMINOPHEN 325 MG TABLET ONE (20:28)
[2018-02-08 22:04] VITALS: BP 112/62
--- NOTE | 2018-02-09 20:55 | Progress Note ---
Provider Note Provider Note: Date: February 07, 2018 23:45 Patient was admitted with lower GI bleed. Patient's current hemoglobin is 8.5. Patient had a colonoscopy EGD which did not reveal any source of bleeding. Patient continues to have active lower GI bleed. Patient went to bathroom for BM and had a large bright red blood per rectum and when patient was returning to his bed he passed out on the floor. Patient was diaphoretic and hypotensive and pale. Patient was transferred to bed. Patient's blood pressure was 130/ 60. Return hemoglobin came back 8.0. Will transfer patient to ICU for close monitoring and give 1 unit of PRBC. Patient is currently awaiting transfer to [facility]. Family is currently at bedside and was updated about change in medical conditions.
== END 2018-02-08 21:55 | disposition short-term general hospital (02) | DRG 348 ==
LOC: ER 07:37 → EH 09:44 → INTOOBSV 09:44 → 5 16:04 → OBSVTOIN 02-07 13:35 → ICU 02-08 02:20
PROVIDERS: ADMIT Internal Medicine; ATTEND Internal Medicine
PROC: 30233N1 Transfusion of Nonautologous Red Blood Cells into Peripheral Vein, Percutaneous Approach (ICD-10-PCS; 2018-02-06)
PROC: 0DBE8ZZ Excision of Large Intestine, Via Natural or Artificial Opening Endoscopic (ICD-10-PCS; 2018-02-07)
PROC: 0DBQ8ZZ Excision of Anus, Via Natural or Artificial Opening Endoscopic (ICD-10-PCS; 2018-02-07)
PROC: 06BY4ZC Excision of Hemorrhoidal Plexus, Percutaneous Endoscopic Approach (ICD-10-PCS; principal; 2018-02-07 13:00)
PROC: 0DJ08ZZ Inspection of Upper Intestinal Tract, Via Natural or Artificial Opening Endoscopic (ICD-10-PCS; 2018-02-07 13:00)
DX: K92.1 Melena (principal); D62 Acute posthemorrhagic anemia; I95.9 Hypotension, unspecified; I10 Essential (primary) hypertension; E78.00 Pure hypercholesterolemia, unspecified; K64.4 Residual hemorrhoidal skin tags; M19.90 Unspecified osteoarthritis, unspecified site; M10.9 Gout, unspecified; K57.30 Diverticulosis of large intestine without perforation or abscess without bleeding; K64.2 Third degree hemorrhoids; K29.50 Unspecified chronic gastritis without bleeding; K21.0 Gastro-esophageal reflux disease with esophagitis; Z79.899 Other long term (current) drug therapy; Z87.11 Personal history of peptic ulcer disease; Z87.891 Personal history of nicotine dependence; Z82.49 Family history of ischemic heart disease and other diseases of the circulatory system
CPT/HCPCS: 36415; 36430; 43235; 45380; 80048; 80053; 80076; 81001; 83735; 83880; 84100; 85025; 85027; 85610; 86850; 86900; 86901; 86920; 88305; 99285; G0378; J0171; J1200; J1610; J2250; J2310; J2405; J3010; J3490; J7030; P9016; S0164

== ENCOUNTER 2018-08-09 22:07 | Emergency (ER) | payer MEDICARE, OTHER ==
[2018-08-09] MEDS ORDERED: LIDOCAINE 2% URO-JET 5 ML KIT MM ONE (22:17)
--- NOTE | 2018-08-09 23:03 | ER Document Report ---
ED GI/ - General Chief Complaint: Urinary Retention Stated Complaint: URINARY RETENTION Time Seen by Provider: 08/09/18 23:03 Primary Care Provider: JEREMIE DARLING [NO LOCAL MD] - Follow up as needed Mode of Arrival: Ambulatory Information source: Patient, Relative Notes: HISTORY OF PRESENT ILLNESS: Patient is a 68-year-old male with a past medical history of hyperlipidemia, hypertension, and recent hemorrhoidectomy 1 day ago who presents with urinary retention. Of note, the patient had a regional nerve block during his procedure and reports being told that it could be up to 4-5 days before the effects of the anesthesia completely wore off. He denies fevers or chills, no injuries, no saddle paresthesias, no fecal incontinence. Location: Urinary Onset: Sudden today Provocation: None Quality: "I stand they are trying to pee and I cannot" Radiation: None Severity: Severe Timing: Constant REVIEW OF SYSTEMS: CONSTITUTIONAL : Denies fever or chills, no sweats. Denies recent illness. EENT: Denies eye, ear, throat, or mouth pain or symptoms. Denies nasal or sinus congestion. CARDIOVASCULAR: Denies chest pain. RESPIRATORY: Denies cough, cold, or chest congestion. Denies shortness of breath, difficulty breathing, or wheezing. GASTROINTESTINAL: Denies abdominal pain. Denies nausea, vomiting, or diarrhea. Denies constipation. GENITOURINARY: Positive inability to urinate. Denies painful urination, burning, frequency, or blood in urine. MUSCULOSKELETAL: Denies neck or back pain or joint pain or swelling. SKIN: Denies rash or skin lesions. HEMATOLOGIC : Denies easy bruising or bleeding. LYMPHATIC: Denies swollen, enlarged glands. NEUROLOGICAL: Denies altered mental status or loss of consciousness. Denies headache. Denies weakness or paralysis or loss of use of either side. Denies problems with gait or speech. Denies sensory or motor loss. PSYCHIATRIC: Denies anxiety or stress or depression. All other systems reviewed and negative. PHYSICAL EXAMINATION: GENERAL: Well-appearing, well-nourished and in no acute distress. HEAD: Atraumatic, normocephalic. No scalp deformity, depression, or crepitance. EYES: Pupils are 3 mm and equal/round/reactive to light, extraocular movements intact, sclera anicteric, conjunctiva are normal. ENT: Nares patent bilaterally, oropharynx clear without exudates or palatal petechia. Moist mucous membranes. No tonsil hypertrophy. NECK: Normal range of motion, supple without lymphadenopathy. LUNGS: Breath sounds present, equal, and clear to auscultation bilaterally. No wheezes, rales, or rhonchi. HEART: Regular rate and rhythm without murmurs, rubs, or gallops. 2+ peripheral pulses. Normal capillary refill. ABDOMEN: Soft, nontender, nondistended. Normoactive bowel sounds. No guarding, no rebound. No masses appreciated. BACK: Normal contour, no midline tenderness. Rectal exam deferred. GENITAL: Mild suprapubic tenderness, normal-appearing external genitalia without lesions, no bleeding or drainage from the urethral meatus EXTREMITIES: Normal range of motion, no pitting or edema. No cyanosis. NEUROLOGICAL: No focal neurological deficits. Moves all extremities spontaneo usly and on command. PSYCH: Normal mood, normal affect. No suicidal thoughts/ideations. No homocidal thoughts/ideations. No hallucinations. SKIN: Warm, dry, normal turgor, no rashes or lesions noted. ASSESSMENT AND PLAN: This patient is a 68-year-old male who presents with urinary retention that is likely secondary to lasting effects from his nerve block, could also be urinary tract infection versus BPH but this is less likely given lack of supporting symptoms or historical significance.. 1. Will place Esquivel catheter and send urine sample for urinalysis. 2. Will leave Esquivel in place and have the patient follow-up with his primary physician in 2-3 days to have it removed. TRAVEL OUTSIDE OF THE [place] IN LAST 30 DAYS: No - Related Data Allergies/Adverse Reactions: No Known Allergies Allergy (Unverified 08/13/14 17:46) Past Medical History - General Information source: Patient, Relative - Social History Smoking Status: Former Smoker Chew tobacco use (# tins/day): No Frequency of alcohol use: None Drug Abuse: None Lives with: Family Family History: Reviewed & Not Pertinent, CAD - Past Medical History Cardiac Medical History: Reports: Hx Hypercholesterolemia, Hx Hypertension Pulmonary Medical History: Reports: Hx Pneumonia EENT Medical History: Reports: None Neurological Medical History: Reports: None. Denies: Hx Seizures Endocrine Medical History: Reports: None Renal/ Medical History: Reports: None. Denies: Hx Peritoneal Dialysis Malignancy Medical History: Reports None GI Medical History: Reports: Hx Gastroesophageal Reflux Disease Musculoskeletal Medical History: Reports None Skin Medical History: Reports None Psychiatric Medical History: Reports: None Traumatic Medical History: Reports: None Infectious Medical History: Reports: None Surgical Hx: Negative Past Surgical History: Reports: None, Other - HERNIA REPAIR, HEMRRHOID BANDING, BLEEDING ULCER - Immunizations Immunizations up to date: Yes Hx Diphtheria, Pertussis, Tetanus Vaccination: Yes History of Influenza Vaccine for 04/2017 - 09/2017 Season: Yes Physical Exam - Vital signs Vitals: Temp Pulse Resp BP Pulse Ox 98.1 F 84 16 136/78 H 98 08/09/18 22:17 08/09/18 22:17 08/09/18 22:17 08/09/18 22:17 08/09/18 22:17 Course - Re-evaluation Re-evalutation: 08/10/18 02:11 Urinalysis is negative. Patient will be discharged home with return precautions and follow-up with his primary physician in 2 days to have his Esquivel catheter removed. Patient and his voiced understanding and agreeing with the plan. - Vital Signs Vital signs: Temp Pulse Resp BP Pulse Ox 98.1 F 84 16 136/78 H 98 08/09/18 22:17 08/09/18 22:17 08/09/18 22:17 08/09/18 22:17 08/09/18 22:17 Discharge - Discharge Clinical Impression: Acute urinary retention Condition: Good Disposition: HOME, SELF-CARE Instructions: Urinary Retention ([facility]), Esquivel Catheter Care ([facility]) Additional Instructions: You have been evaluated in the Emergency Department for urinary retention that is likely a result of your recent anesthesia. Please follow-up with your [primary physician] as instructed in 2 days to have the Esquivel catheter removed. Return to the Emergency Department if you experience pain, decreased urine output from the catheter, bleeding from your catheter, or any other concerning symptoms. Referrals: LOCALMD,NO [NO LOCAL MD] - Follow up as needed Print Language: Divehi
[2018-08-10 00:07] LABS: APPEARANCE,URINE CLEAR; BILIRUBIN,URINE NEGATIVE (NEGATIVE); COLOR,URINE YELLOW; GLUCOSE, URINE NEGATIVE (NEGATIVE); KETONES,URINE NEGATIVE (NEGATIVE); LEUKOCYTE ESTERASE,URINE NEGATIVE (NEGATIVE); NITRITE,URINE NEGATIVE (NEGATIVE); PROTEIN,URINE NEGATIVE (NEGATIVE); URINE SPECIFIC GRAVITY 1.018; UROBILINOGEN,URINE NEGATIVE mg/dL (<2.0)
[2018-08-10 02:47] VITALS: BP 143/75
== END 2018-08-10 02:47 | disposition home or self-care (01) ==
LOC: ER 22:07
DX: R33.9 Retention of urine, unspecified (principal); E78.5 Hyperlipidemia, unspecified; I10 Essential (primary) hypertension; Z98.890 Other specified postprocedural states
CPT/HCPCS: 99283; 51702; 81001; A9270; J3490

== ENCOUNTER 2018-08-19 05:25 | Inpatient (IN) | payer MEDICARE, OTHER ==
[2018-08-19] MEDS ORDERED: NORMAL SALINE 1000 ML 1,000 ML IV ONE (06:10)
[2018-08-19 06:38] LABS: HEMATOCRIT 33.5 % (37.9-51.0); HEMOGLOBIN 11.8 g/dL (13.5-17.0); MEAN CORPUSCULAR HEMOGLOBIN 30.1 pg (27.0-33.4); MEAN CORPUSCULAR HGB CONC 35.1 g/dL (32.0-36.0); MEAN CORPUSCULAR VOLUME 86 fl (80-97); PLATELET COUNT 303 10^3/uL (150-450); RED CELL DISTRIBUTION WIDTH 13.9 % (11.5-14.0); WHITE BLOOD COUNT 22.9 10^3/uL (4.0-10.5)
--- NOTE | 2018-08-19 06:40 | ER Document Report ---
ED Fever - General Chief Complaint: Fever Stated Complaint: POSSIBLE FEVER Time Seen by Provider: 08/19/18 06:09 Primary Care Provider: VICTOR HUGO DAMICO MD [Primary Care Provider] - Follow up as needed TRAVEL OUTSIDE OF THE [place] IN LAST 30 DAYS: No - HPI Notes: Patient is a 68-year-old male that presents to the emergency department for chief complaint of fever. Patient reports fever and chills that started yesterday afternoon. He was seen at an urgent care facility yesterday and given a dose of Rocephin and started on Cipro for borderline urinary tract infection. He was told he had a leukocytosis yesterday of 15. He was supposed to return to the urgent care today for another dose of Rocephin and repeat lab work but was feeling worse. He did take Tylenol prior to coming in the emergency room. He denies any nausea, vomiting, chest pain, coughing and shortness of breath. Past Medical History: Hypertension, hyperlipidemia, gout Past Surgical History: Hemorrhoidectomy Social History: Former smoker. Denies drugs and alcohol use Family History: Reviewed and noncontributory for presenting illness Allergies: Reviewed, see documented allergy list. REVIEW OF SYSTEMS: CONSTITUTIONAL : fever chills No diaphoresis No recent illness EENT: No vision changes No congestion No sore throat CARDIOVASCULAR: No chest pain No palpitations RESPIRATORY: No shortness of breath No cough No difficulty breathing GASTROINTESTINAL: No abdominal pain No nausea No vomiting No diarrhea GENITOURINARY: dysuria Urinary frequency No hematuria No difficulty urinating MUSCULOSKELETAL: No back pain No leg pain No arm pain SKIN: No rashes No lesions LYMPHATIC: No swollen, enlarged glands. NEUROLOGICAL: No lightheadedness No headache No weakness No paresthesias PSYCHIATRIC: No anxiety No depression PHYSICAL EXAMINATION: Vital signs reviewed, nursing noted reviewed. GENERAL: Well-appearing, well-nourished and in no acute distress. HEAD: Atraumatic, normocephalic. EYES: Eyes appear normal, extraocular movements intact, sclera anicteric, conjunctiva are normal. ENT: nares patent, oropharynx clear without exudates. Moist mucous membranes. NECK: Normal range of motion, supple without lymphadenopathy LUNGS: Breath sounds clear to auscultation bilaterally and equal. No wheezes rales or rhonchi. HEART: Regular rate and rhythm without murmurs ABDOMEN: Soft, nontender, normoactive bowel sounds. No rebound, guarding, or rigidity. No masses appreciated. EXTREMITIES: Nontender, good range of motion, no pitting or edema. NEUROLOGICAL: No focal neurological deficits. Moves all extremities spontaneously Motor and sensory grossly intact on exam. PSYCH: Normal mood, normal affect. SKIN: Warm, Dry, normal turgor, no rashes or lesions noted on exposed skin - Related Data Allergies/Adverse Reactions: No Known Allergies Allergy (Unverified 08/13/14 17:46) Past Medical History - Social History Smoking Status: Former Smoker Family History: Reviewed & Not Pertinent, CAD - Past Medical History Cardiac Medical History: Reports: Hx Hypercholesterolemia, Hx Hypertension Pulmonary Medical History: Reports: Hx Pneumonia Neurological Medical History: Denies: Hx Seizures Renal/ Medical History: Denies: Hx Peritoneal Dialysis GI Medical History: Reports: Hx Gastroesophageal Reflux Disease Past Surgical History: Reports: Hx Bowel Surgery, Other - HERNIA REPAIR, HEMRRHOID BANDING, BLEEDING ULCER - Immunizations Immunizations up to date: Yes Hx Diphtheria, Pertussis, Tetanus Vaccination: Yes Physical Exam - Vital signs Vitals: Temp Pulse Resp BP Pulse Ox 100.3 F 123 H 22 H 136/72 H 99 08/19/18 05:26 08/19/18 05:26 08/19/18 05:26 08/19/18 05:26 08/19/18 05:26 Course - Re-evaluation Re-evalutation: 08/19/18 06:40 Vitals reviewed. Nursing notes reviewed. Patient does have Sirs criteria and will be started on IV hydration 08/19/18 09:08 Patient's lab work shows a leukocytosis of 22 today. This is increased compared to the report of 15 yesterday despite receiving IV Rocephin yesterday. Patient does have urinary tract infection that will again be treated with IV antibioti cs. His lactic acid is normal and he has no other endorgan damage to suggest shock. Patient states he is feeling better after some IV hydration. He will be admitted to the hospital for his sepsis and urinary tract infection. He is in agreement with plan of care. He is stable at time of admission. Laboratory 08/19/18 08/19/18 08/19/18 06:20 06:20 06:45 WBC 22.9 H RBC 3.90 L Hgb 11.8 L Hct 33.5 L MCV 86 MCH 30.1 MCHC 35.1 RDW 13.9 Plt Count 303 Total Counted 100 Seg Neutrophils % Not Reportable Seg Neuts % (Manual) 86 H Lymphocytes % Not Reportable Lymphocytes % (Manual) 9 L Monocytes % Not Reportable Monocytes % (Manual) 5 Eosinophils % Not Reportable Eosinophils % (Manual) 0 Basophils % Not Reportable Basophils % (Manual) 0 Absolute Neutrophils Not Reportable Abs Neuts (Manual) 19.7 H Absolute Lymphocytes Not Reportable Abs Lymphs (Manual) 2.1 Absolute Monocytes Not Reportable Abs Monocytes (Manual) 1.1 Absolute Eosinophils Not Reportable Absolute Eos (Manual) 0.0 Absolute Basophils Not Reportable Abs Basophils (Manual) 0.0 Toxic Granulation 1+ Clumped Platelets PRESENT Platelet Comment ADEQUATE Sodium 138.6 Potassium 3.9 Chloride 104 Carbon Dioxide 21 L Anion Gap 14 BUN 13 Creatinine 1.00 Est GFR ( Amer) > 60 Est GFR (Non-Af Amer) > 60 Glucose 112 H Lactic Acid 1.0 Calcium 9.4 Total Bilirubin 0.9 Direct Bilirubin 0.3 Neonat Total Bilirubin Not Reportable Neonat Direct Bilirubin Not Reportable Neonat Indirect Bili Not Reportable AST 28 ALT 26 Alkaline Phosphatase 88 Total Protein 6.9 Albumin 4.3 Urine Color Urine Appearance Urine pH Ur Specific [place] Urine Protein Urine Glucose (UA) Urine Ketones Urine Blood Urine Nitrite Urine Bilirubin Urine Urobilinogen Ur Leukocyte Esterase Urine WBC (Auto) Urine RBC (Auto) U Hyaline Cast (Auto) Urine Mucus (Auto) Urine Ascorbic Acid Influenza A (Rapid) Influenza B (Rapid) 08/19/18 08/19/18 07:15 07:15 WBC RBC Hgb Hct MCV MCH MCHC RDW Plt Count Total Counted Seg Neutrophils % Seg Neuts % (Manual) Lymphocytes % Lymphocytes % (Manual) Monocytes % Monocytes % (Manual) Eosinophils % Eosinophils % (Manual) Basophils % Basophils % (Manual) Absolute Neutrophils Abs Neuts (Manual) Absolute Lymphocytes Abs Lymphs (Manual) Absolute Monocytes Abs Monocytes (Manual) Absolute Eosinophils Absolute Eos (Manual) Absolute Basophils Abs Basophils (Manual) Toxic Granulation Clumped Platelets Platelet Comment Sodium Potassium Chloride Carbon Dioxide Anion Gap BUN Creatinine Est GFR ( Amer) Est GFR (Non-Af Amer) Glucose Lactic Acid Calcium Total Bilirubin Direct Bilirubin Neonat Total Bilirubin Neonat Direct Bilirubin Neonat Indirect Bili AST ALT Alkaline Phosphatase Total Protein Albumin Urine Color YELLOW Urine Appearance CLOUDY Urine pH 5.0 Ur Specific [place] 1.029 Urine Protein 30 H Urine Glucose (UA) NEGATIVE Urine Ketones NEGATIVE Urine Blood NEGATIVE Urine Nitrite NEGATIVE Urine Bilirubin NEGATIVE Urine Urobilinogen NEGATIVE Ur Leukocyte Esterase LARGE H Urine WBC (Auto) >182 Urine RBC (Auto) 4 U Hyaline Cast (Auto) 2 Urine Mucus (Auto) MOD Urine Ascorbic Acid NEGATIVE Influenza A (Rapid) NEGATIVE Influenza B (Rapid) NEGATIVE Chest X-Ray 08/19/18 06:09 IMPRESSION: 1. Mild left basilar atelectasis suspected. 2. Otherwise, the lungs are grossly clear. - Vital Signs Vital signs: Temp Pulse Resp BP Pulse Ox 100.3 F 123 H 27 H 127/72 H 98 08/19/18 05:26 08/19/18 05:26 08/19/18 08:01 08/19/18 08:01 08/19/18 08:01 - Laboratory Result Diagrams: 08/19/18 06:20 08/19/18 06:20 Laboratory results interpreted by me: 08/19/18 08/19/18 08/19/18 06:20 06:20 07:15 WBC 22.9 H RBC 3.90 L Hgb 11.8 L Hct 33.5 L Seg Neuts % (Manual) 86 H Lymphocytes % (Manual) 9 L Abs Neuts (Manual) 19.7 H Carbon Dioxide 21 L Glucose 112 H Urine Protein 30 H Ur Leukocyte Esterase LARGE H Discharge - Discharge Clinical Impression: Acute UTI Sepsis Qualifiers: Sepsis type: sepsis due to unspecified organism Qualified Code(s): A41.9 - Sepsis, unspecified organism Condition: Stable Disposition: ADMITTED INPATIENT Admitting Provider: Hospitalist Unit Admitted: Telemetry Referrals: VICTOR HUGO DAMICO MD [Primary Care Provider] - Follow up as needed
[2018-08-19 06:53] LABS: ABSOLUTE LYMPHOCYTES# (MANUAL) 2.1 10^3/uL (0.5-4.7); ABSOLUTE MONOCYTES # (MANUAL) 1.1 10^3/uL (0.1-1.4); ABSOLUTE NEUTROPHILS# (MANUAL) 19.7 10^3/uL (1.7-8.2); BASOPHILS % (MANUAL) 0 % (0-2); EOSINOPHILS % (MANUAL) 0 % (0-6); LYMPHOCYTES % (MANUAL) 9 % (13-45); MONOCYTES % (MANUAL) 5 % (3-13); SEGMENTED NEUTROPHILS % (MAN) 86 % (42-78); TOTAL CELLS COUNTED 100
[2018-08-19 06:54] LABS: TOXIC GRANULATION 1+
[2018-08-19 06:55] LABS: PLATELET CLUMPS PRESENT; PLATELET COMMENT ADEQUATE
[2018-08-19 07:02] LABS: ALANINE AMINOTRANSFERASE 26 U/L (21-72); ALBUMIN 4.3 g/dL (3.5-5.0); ALKALINE PHOSPHATASE 88 U/L (38-126); ANION GAP 14 (5-19); ASPARTATE AMINO TRANSFERASE 28 U/L (17-59); BILIRUBIN,DIRECT 0.3 mg/dL (0.0-0.4); BILIRUBIN,TOTAL 0.9 mg/dL (0.2-1.3); BLOOD UREA NITROGEN 13 mg/dL (7-20); CALCIUM 9.4 mg/dL (8.4-10.2); CARBON DIOXIDE 21 mmol/L (22-30); CHLORIDE 104 mmol/L (98-107); GLUCOSE 112 mg/dL (75-110); POTASSIUM 3.9 mmol/L (3.6-5.0); SODIUM 138.6 mmol/L (137-145); TOTAL PROTEIN 6.9 g/dL (6.3-8.2)
--- NOTE | 2018-08-19 07:30 | RADIOLOGY REPORT (SQ) ---
EXAM DESCRIPTION: X-ray single view chest. CLINICAL HISTORY: 68 years Male, fever COMPARISON: None. TECHNIQUE: Single portable view of the chest performed on 08/19/2018 at 7:09 AM FINDINGS: The lungs are relatively well expanded and are grossly clear. There is minimal left basilar opacification likely reflecting atelectasis. No dense airspace consolidation is seen. There is no evidence of a pneumothorax. The cardiac silhouette is normal in size and configuration. The mediastinal contours are normal. No acute osseous abnormality is identified. No focal soft tissue abnormalities are seen. Lines and tubes: None. IMPRESSION: 1. Mild left basilar atelectasis suspected. 2. Otherwise, the lungs are grossly clear.
[2018-08-19] MEDS ORDERED: CEFTRIAXONE INJ 1000 MG VIAL IV ONE (07:32)
[2018-08-19 07:48] LABS: A TYPE INFLUENZA AG NEGATIVE (NEGATIVE); B INFLUENZA AG NEGATIVE (NEGATIVE)
[2018-08-19 08:31] LABS: APPEARANCE,URINE CLOUDY; BILIRUBIN,URINE NEGATIVE (NEGATIVE); COLOR,URINE YELLOW; GLUCOSE, URINE NEGATIVE (NEGATIVE); KETONES,URINE NEGATIVE (NEGATIVE); LEUKOCYTE ESTERASE,URINE LARGE (NEGATIVE); NITRITE,URINE NEGATIVE (NEGATIVE); PROTEIN,URINE 30 mg/dL (NEGATIVE); URINE SPECIFIC GRAVITY 1.029; UROBILINOGEN,URINE NEGATIVE mg/dL (<2.0)
[2018-08-19] MEDS ORDERED: KETOROLAC TROMETHAMINE INJ/PF 30 MG/1 ML SDV IV ONE (08:44)
[2018-08-19] MEDS ORDERED: IPRATROPIUM/ALBUTEROL 0.5-2.5 MG/3 ML AMPUL NEB PRN (10:48)
[2018-08-19] MEDS ORDERED: OXYCODONE-ACETAMINOPHEN 5-325 MG TABLET PO PRN (10:55)
[2018-08-19] MEDS ORDERED: MAG HYDROX/AL HYDROX/SIMETH SUSP 30 ML UDCUP PO PRN (10:55)
[2018-08-19] MEDS ORDERED: MAGNESIUM HYDROXIDE SUSP 30 ML UDCUP PO PRN (10:55)
--- NOTE | 2018-08-19 13:55 | PDOC H&P ---
History of Present Illness Admission Date/PCP: 08/19/18 09:20 VICTOR HUGO DAMICO MD Patient complains of: dysuria, fever History of Present Illness: ARA LIU is a 68 year old male with a past medical history significant for hypertension, hyperlipidemia, lung cancer status post partial lobectomy, and recent urinary retention following hemorrhoidectomy requiring Esquivel catheter that was removed 3 days ago at his surgical follow-up appointment at [place] who presented to the emergency department today with a complaint of fever (103 at home), fatigue, malaise, urinary urgency, frequency, and dysuria. He was seen by an urgent care yesterday and provided IM Rocephin x1 and a Cipro prescription. The patient reportedly took 1 dose last night but presented to the emergency department today due to his elevated temperature. Evaluation in the emergency department reveals leukocytosis (WBCs 22.9), anemia (hemoglobin 11.8; improved from baseline of 8), unremarkable chemistry, UTI by urinalysis, negative flu, and benign chest x-ray. CT of the abdomen/renal pr otocol is pending. He has been provided IV Rocephin by the ED provider and referred to the hospitalist service for admission and management of complicated UTI. Past Medical History Cardiac Medical History: Reports: Hyperlipidema, Hypertension Pulmonary Medical History: Reports: Pneumonia EENT Medical History: Reports: None Neurological Medical History: Denies: Ischemic CVA, Seizures Endocrine Medical History: Reports: None Renal/ Medical History: Reports: None Malignancy Medical History: Reports: Lung Cancer GI Medical History: Reports: Gastroesophageal Reflux Disease Musculoskeltal Medical History: Reports: None Skin Medical History: Reports: None Psychiatric Medical History: Reports: None Traumatic Medical History: Reports: None Hematology: Reports: Anemia Infectious Medical History: Reports: None Past Surgical History Past Surgical History: Reports: Other - Partial Lobectomy, HERNIA REPAIR, HEMRRHOID BANDING, BLEEDING ULCER Social History Information Source: Patient Lives with: Family Smoking Status: Former Smoker Frequency of Alcohol Use: Occasional Hx Recreational Drug Use: No Hx Prescription Drug Abuse: No - Advance Directive Resuscitation Status: Full Code Surrogate healthcare decision maker:: The patient's , Elisabeth Liu Family History Family History: Reviewed & Not Pertinent, CAD Parental Family History Reviewed: Yes Children Family History Reviewed: Yes Sibling(s) Family History Reviewed.: Yes Medication/Allergy Home Medications: Acetaminophen [Tylenol Extra Strength] 500 mg PO BIDP PRN 02/06/18 Amlodipine Besylate [Norvasc 10 mg Tablet] 10 mg PO DAILY 02/06/18 Cetirizine HCl [Zyrtec 10 mg Tablet] 10 mg PO DAILY 02/06/18 Colchicine [Colcrys 0.6 mg Tablet] 0.6 mg PO DAILY 02/06/18 Ferrous Sulfate, Dried [Slow Release Iron] 144 mg PO BID 02/06/18 Lisinopril [Zestril] 40 mg PO DAILY 02/06/18 Omeprazole 40 mg PO QAM 02/06/18 Pravastatin Sodium [Pravachol] 80 mg PO QHS 02/06/18 Allergies/Adverse Reactions: No Known Allergies Allergy (Unverified 08/13/14 17:46) Review of Systems Constitutional: PRESENT: chills, fatigue, fever(s). ABSENT: headache(s), weight gain, weight loss Eyes: ABSENT: visual disturbances Ears: ABSENT: hearing changes Cardiovascular: ABSENT: chest pain, dyspnea on exertion, edema, orthropnea, palpitations Respiratory: ABSENT: cough, hemoptysis Gastrointestinal: ABSENT: abdominal pain, constipation, diarrhea, hematemesis, hematochezia, nausea, vomiting Genitourinary: PRESENT: dysuria, hematuria, other - Urgency and frequency Musculoskeletal: ABSENT: joint swelling Integumentary: ABSENT: rash, wounds Neurological: ABSENT: abnormal gait, abnormal speech, confusion, dizziness, focal weakness, syncope Psychiatric: ABSENT: anxiety, depression, homidical ideation, suicidal ideation Endocrine: ABSENT: cold intolerance, heat intolerance, polydipsia, polyuria Hematologic/Lymphatic: ABSENT: easy bleeding, easy bruising Physical Exam Vital Signs: Temp Pulse Resp BP Pulse Ox 100.3 F 123 H 19 115/73 96 08/19/18 05:26 08/19/18 05:26 08/19/18 12:01 08/19/18 12:01 08/19/18 12:01 Intake & Output 08/18/18 08/19/18 08/20/18 06:59 06:59 06:59 Intake Total 1000 Balance 1000 Weight 89.358 kg General appearance: PRESENT: no acute distress, cooperative, well-developed, well-nourished Head exam: PRESENT: atraumatic, normocephalic Eye exam: PRESENT: conjunctiva pink, EOMI, PERRLA. ABSENT: scleral icterus Ear exam: PRESENT: normal external ear exam Mouth exam: PRESENT: moist, tongue midline Neck exam: ABSENT: carotid bruit, JVD, lymphadenopathy, thyromegaly Respiratory exam: PRESENT: clear to auscultation julio, symmetrical, unlabored. ABSENT: rales, rhonchi, wheezes Cardiovascular exam: PRESENT: RRR, +S1, +S2. ABSENT: diastolic murmur, rubs, systolic murmur Pulses: PRESENT: normal dorsalis pedis pul Vascular exam: PRESENT: normal capillary refill GI/Abdominal exam: PRESENT: normal bowel sounds, soft. ABSENT: distended, guarding, mass, organolmegaly, rebound, tenderness Rectal exam: PRESENT: deferred Extremities exam: PRESENT: full ROM. ABSENT: calf tenderness, clubbing, pedal edema Neurological exam: PRESENT: alert, awake, oriented to person, oriented to place, oriented to time, oriented to situation, CN II-XII grossly intact. ABSENT: motor sensory deficit Psychiatric exam: PRESENT: appropriate affect, normal mood. ABSENT: homicidal ideation, suicidal ideation Skin exam: PRESENT: dry, intact, warm. ABSENT: cyanosis, rash Results Laboratory Results: 08/19/18 06:20 08/19/18 06:20 08/19/18 08/19/18 08/19/18 06:20 06:20 06:45 WBC 22.9 H RBC 3.90 L Hgb 11.8 L Hct 33.5 L MCV 86 MCH 30.1 MCHC 35.1 RDW 13.9 Plt Count 303 Seg Neutrophils % Not Reportable Lymphocytes % Not Reportable Monocytes % Not Reportable Eosinophils % Not Reportable Basophils % Not Reportable Absolute Neutrophils Not Reportable Absolute Lymphocytes Not Reportable Absolute Monocytes Not Reportable Absolute Eosinophils Not Reportable Absolute Basophils Not Reportable Sodium 138.6 Potassium 3.9 Chloride 104 Carbon Dioxide 21 L Anion Gap 14 BUN 13 Creatinine 1.00 Est GFR ( Amer) > 60 Est GFR (Non-Af Amer) > 60 Glucose 112 H Lactic Acid 1.0 Calcium 9.4 Total Bilirubin 0.9 AST 28 ALT 26 Alkaline Phosphatase 88 Total Protein 6.9 Albumin 4.3 Urine Color Urine Appearance Urine pH Ur Specific [place] Urine Protein Urine Glucose (UA) Urine Ketones Urine Blood Urine Nitrite Ur Leukocyte Esterase Urine WBC (Auto) Urine RBC (Auto) 08/19/18 07:15 WBC RBC Hgb Hct MCV MCH MCHC RDW Plt Count Seg Neutrophils % Lymphocytes % Monocytes % Eosinophils % Basophils % Absolute Neutrophils Absolute Lymphocytes Absolute Monocytes Absolute Eosinophils Absolute Basophils Sodium Potassium Chloride Carbon Dioxide Anion Gap BUN Creatinine Est GFR ( Amer) Est GFR (Non-Af Amer) Glucose Lactic Acid Calcium Total Bilirubin AST ALT Alkaline Phosphatase Total Protein Albumin Urine Color YELLOW Urine Appearance CLOUDY Urine pH 5.0 Ur Specific [place] 1.029 Urine Protein 30 H Urine Glucose (UA) NEGATIVE Urine Ketones NEGATIVE Urine Blood NEGATIVE Urine Nitrite NEGATIVE Ur Leukocyte Esterase LARGE H Urine WBC (Auto) >182 Urine RBC (Auto) 4 Impressions: Chest X-Ray 08/19/18 06:09 IMPRESSION: 1. Mild left basilar atelectasis suspected. 2. Otherwise, the lungs are grossly clear. Assessment & Plan - Diagnosis (1) Acute UTI Is this a current diagnosis for this admission?: Yes Plan: Acute UTI following Esquivel catheter removal 3 days ago for treatment of postoperative urinary retention. Urinalysis is positive for UTI. Blood cultures pending. Urine cultures pending. CT abdomen/pelvis pending. Patient is admitted to the medical floor. He is empirically placed on IV Rocephin; will adjust as cultures result. Continue gentle IV maintenance fluids. Monitor for recurrence of urinary retention; institute straight catheters as needed, and consider need for Flomax. (2) Anemia Qualifiers: Anemia type: unspecified type Qualified Code(s): D64.9 - Anemia, unspecified Is this a current diagnosis for this admission?: Yes Plan: Patient with history of chronic anemia. Hemoglobin 11.8; up from baseline of 8.0. Anticipate decrease tomorrow secondary to IV fluids. Will obtain anemia panel. Multivitamin with ferrous sulfate supplementation. Registered dietitian is consulted. (3) GERD (gastroesophageal reflux disease) Is this a current diagnosis for this admission?: Yes Plan: Prevacid twice daily. (4) HLD (hyperlipidemia) Qualifiers: Hyperlipidemia type: pure hypercholesterolemia Qualified Code(s): E78.00 - Pure hypercholesterolemia, unspecified; E78.0 - Pure hypercholesterolemia Is this a current diagnosis for this admission?: Yes Plan: Continue daily statin therapy. Cardiac diet. (5) HTN (hypertension) Qualifiers: Hypertension type: essential hypertension Qualified Code(s): I10 - Essential (primary) hypertension Is this a current diagnosis for this admission?: Yes Plan: Patient is noted to be somewhat hypotensive today secondary to acute illness; 100/70 Continue maintenance IV fluids. Cardiac diet. Will resume home medications as blood pressure dictates; amlodipine and lisinopril. Holding for now. - Time Time Spent: 50 to 70 Minutes Medications reviewed and adjusted accordingly: Yes Anticipated discharge: Home Within: within 48 hours - Inpatient Certification Based on my medical assessment, after consideration of the patient's comorbidities, presenting symptoms, or acuity I expect that the services needed warrant INPATIENT care.: Yes I certify that my determination is in accordance with my understanding of Medicare's requirements for reasonable and necessary INPATIENT services [42 CFR 412.3e].: Yes Medical Necessity: Failure to Improve With Outpatient Therapy, Need For IV Fluids, Need for IV Antibiotics
[2018-08-19] MEDS: HEPARIN SOD (PORCINE) 5,000 UNIT/ML 1 ML SYRINGE SUBCUT SCH ×2 (14:20→21:56)
--- NOTE | 2018-08-19 15:11 | RADIOLOGY REPORT (SQ) ---
EXAM DESCRIPTION: CT ABD/PELVIS WITH IV ONLY COMPLETED DATE/TIME: 08/19/2018 2:58 pm REASON FOR STUDY: renal protocol; UTI/Sepsis COMPARISON: None. TECHNIQUE: CT scan of the abdomen and pelvis performed using helical scanning technique with dynamic intravenous contrast injection. No oral contrast. Images reviewed with lung, soft tissue, and bone windows. Reconstructed coronal and sagittal MPR images reviewed. Delayed images for evaluation of the urinary system also acquired. All images stored on PACS. All CT scanners at this facility use dose modulation, iterative reconstruction, and/or weight based d osing when appropriate to reduce radiation dose to as low as reasonably achievable (ALARA). [facility]: Dose Right [facility]: CareDose [facility]: Dose Right [facility]: Teradose 4D [facility]: [employer] CONTRAST TYPE AND DOSE: contrast/concentration: Isovue 350.00 mg/ml; Total Contrast Delivered: 100.0 ml; Total Saline Delivered: 72.0 ml RENAL FUNCTION: GFR > 60. RADIATION DOSE: CT Rad equipment meets quality standard of care and radiation dose reduction techniq ues were employed. CTDIvol: 10.2 - 14.5 mGy. DLP: 1549 mGy-cm.. LIMITATIONS: None. FINDINGS: LOWER CHEST: Postoperative findings of partial left lower lobe resection. Coronary artery calcifications. LIVER: Normal size. No masses. No dilated ducts. SPLEEN: Normal size. No focal lesions. Parenchymal calcifications in keeping with prior granulomatou s infection. PANCREAS: No masses. No significant calcifications. No adjacent inflammation or peripancreatic fluid collections. Pancreatic duct not dilated. GALLBLADDER: No identified stones by CT criteria. No inflammatory changes to suggest cholecystitis. ADRENAL GLANDS: No significant masses or asymmetry. RIGHT KIDNEY AND URETER: No solid masses. No significant calcifications. No hydronephrosis or hyd roureter. LEFT KIDNEY AND URETER: No solid masses. No significant calcifications. No hydronephrosis or hydr oureter. AORTA AND VESSELS: No aneurysm. No dissection. Renal arteries, SMA, celiac without stenosis. RETROPERITONEUM: No retroperitoneal adenopathy, hemorrhage or masses. BOWEL AND PERITONEAL CAVITY: No masses or inflammatory changes. No free fluid or peritoneal masses. Diverticulosis without evidence of acute diverticulitis. APPENDIX: Not visualized. PELVIS: No mass. No free fluid. Mild thickening of the urinary bladder wall with enlargement of the prostate and fat stranding about the bladder, prostate, and seminal vesicles. ABDOMINAL WALL: No masses. No hernias. BONES: No significant or acute findings. OTHER: No other significant finding. IMPRESSION: 1. There is mild thickening of the urinary bladder wall with enlargement of the prostate and fat stranding about the bladder, prostate, and seminal vesicles, findings consistent with cystit is and/or prostatitis. Correlate with urinalysis. 2. Diverticulosis without evidence of acute diverticulitis. TECHNICAL DOCUMENTATION: JOB ID: [id number] Quality ID # [id number]: Final reports with documentation of one or more dose reduction techniques (e.g., Au tomated exposure control, adjustment of the mA and/or kV according to patient size, use of iterative reconstruction technique) 2010 [employer]- All Rights Reserved Reading location - IP/workstation name: [email or web address]
[2018-08-19] MEDS: ONDANSETRON HCL INJ/PF 4 MG/2 ML SDV IV PRN (15:19)
[2018-08-19] MEDS: NORMAL SALINE 1000 ML 1,000 ML IV PRN (15:19)
[2018-08-19] MEDS: LANSOPRAZOLE 15 MG TAB.RAP.DR PO SCH (16:03)
[2018-08-19] MEDS: ACETAMINOPHEN 325 MG TABLET PO PRN (16:46)
[2018-08-19] MEDS: ATORVASTATIN CALCIUM 20 MG TABLET PO SCH (21:56)
[2018-08-19] MEDS: FAMOTIDINE 20 MG TABLET PO SCH (21:56)
[2018-08-19] MEDS: PROMETHAZINE HCL INJ 25 MG/1 ML VIAL IV PRN (23:54)
[2018-08-20] MEDS: NORMAL SALINE 1000 ML 1,000 ML IV PRN ×2 (00:10→11:15)
[2018-08-20] MEDS: HEPARIN SOD (PORCINE) 5,000 UNIT/ML 1 ML SYRINGE SUBCUT SCH ×3 (05:16→21:23)
[2018-08-20] MEDS: ONDANSETRON HCL INJ/PF 4 MG/2 ML SDV IV PRN (05:19)
[2018-08-20] MEDS: LANSOPRAZOLE 15 MG TAB.RAP.DR PO SCH ×2 (05:19→18:33)
[2018-08-20] MEDS: ACETAMINOPHEN 325 MG TABLET PO PRN ×3 (05:21→19:52)
[2018-08-20 07:23] LABS: HEMATOCRIT 28.8 % (37.9-51.0); HEMOGLOBIN 9.9 g/dL (13.5-17.0); MEAN CORPUSCULAR HEMOGLOBIN 29.5 pg (27.0-33.4); MEAN CORPUSCULAR HGB CONC 34.2 g/dL (32.0-36.0); MEAN CORPUSCULAR VOLUME 86 fl (80-97); PLATELET COUNT 244 10^3/uL (150-450); RED BLOOD COUNT 3.33 10^6/uL (4.35-5.55); RED CELL DISTRIBUTION WIDTH 14.2 % (11.5-14.0); RETICULOCYTE COUNT (AUTO) 1.49 % (0.66-2.85); WHITE BLOOD COUNT 21.9 10^3/uL (4.0-10.5)
[2018-08-20 07:40] LABS: ANION GAP 9 (5-19); BLOOD UREA NITROGEN 11 mg/dL (7-20); CALCIUM 8.5 mg/dL (8.4-10.2); CARBON DIOXIDE 21 mmol/L (22-30); CHLORIDE 108 mmol/L (98-107); GLUCOSE 98 mg/dL (75-110); POTASSIUM 3.8 mmol/L (3.6-5.0); SODIUM 138.1 mmol/L (137-145)
[2018-08-20 08:31] LABS: ABSOLUTE LYMPHOCYTES# (MANUAL) 1.8 10^3/uL (0.5-4.7); ABSOLUTE MONOCYTES # (MANUAL) 1.8 10^3/uL (0.1-1.4); ABSOLUTE NEUTROPHILS# (MANUAL) 18.4 10^3/uL (1.7-8.2); BASOPHILS % (MANUAL) 0 % (0-2); EOSINOPHILS % (MANUAL) 0 % (0-6); LYMPHOCYTES % (MANUAL) 8 % (13-45); MONOCYTES % (MANUAL) 8 % (3-13); SEGMENTED NEUTROPHILS % (MAN) 84 % (42-78); TOTAL CELLS COUNTED 100
[2018-08-20 08:32] LABS: ANISOCYTOSIS SLIGHT; PLATELET CLUMPS PRESENT; PLATELET COMMENT ADEQUATE; TOXIC GRANULATION 1+
[2018-08-20 08:45] LABS: FOLATE 6.19 ng/mL (>2.76)
[2018-08-20 08:48] LABS: IRON(TIBC) < 10.1 ug/dL (49-181)
[2018-08-20] MEDS: DOCUSATE SODIUM 100 MG CAPSULE PO SCH (11:08)
[2018-08-20] MEDS: MULTIVITAMIN TABLET PO SCH (11:08)
[2018-08-20] MEDS: FAMOTIDINE 20 MG TABLET PO SCH ×2 (11:08→21:26)
[2018-08-20] MEDS: FERROUS SULFATE 325 MG TABLET PO SCH (11:08)
--- NOTE | 2018-08-20 12:25 | PDOC PROGRESS REPORT ---
Subjective Progress Note for:: 08/20/18 Subjective:: Overnight complaining of continue urinary urgency and mild dysuria. Had low grade temp however denies fevers, chills, abdominal pain, NV. Limited ambulation due to IVF. Tolerating POs. NO other complaints. Reason For Visit: UTI Physical Exam Vital Signs: Temp Pulse Resp BP Pulse Ox 99.0 F 91 16 140/69 H 97 08/20/18 11:23 08/20/18 11:23 08/20/18 11:23 08/20/18 11:23 08/20/18 11:23 Intake & Output 08/19/18 08/20/18 08/21/18 06:59 06:59 06:59 Intake Total 2000 1000 Output Total 500 Balance 1500 1000 Weight 89.358 kg 87.2 kg General appearance: PRESENT: no acute distress, cooperative, well-developed, well-nourished Mouth exam: PRESENT: moist Respiratory exam: PRESENT: symmetrical, unlabored. ABSENT: tachypnea, wheezes Cardiovascular exam: PRESENT: RRR, +S1, +S2 GI/Abdominal exam: PRESENT: normal bowel sounds, soft. ABSENT: rigid, tenderness Extremities exam: ABSENT: +1 edema Neurological exam: PRESENT: alert, awake, CN II-XII grossly intact. ABSENT: aphasic Psychiatric exam: PRESENT: appropriate affect Skin exam: PRESENT: dry, intact Results Laboratory Results: 08/20/18 06:02 08/20/18 06:02 08/20/18 08/20/18 06:02 06:02 WBC 21.9 H RBC 3.33 L Hgb 9.9 L Hct 28.8 L MCV 86 MCH 29.5 MCHC 34.2 RDW 14.2 H Plt Count 244 Seg Neutrophils % Not Reportable Lymphocytes % Not Reportable Monocytes % Not Reportable Eosinophils % Not Reportable Basophils % Not Reportable Absolute Neutrophils Not Reportable Absolute Lymphocytes Not Reportable Absolute Monocytes Not Reportable Absolute Eosinophils Not Reportable Absolute Basophils Not Reportable Retic Count (auto) 1.49 Absolute Retic 0.050 Sodium 138.1 Potassium 3.8 Chloride 108 H Carbon Dioxide 21 L Anion Gap 9 BUN 11 Creatinine 0.99 Est GFR ( Amer) > 60 Est GFR (Non-Af Amer) > 60 Glucose 98 Calcium 8.5 Iron < 10.1 L TIBC 241 L % Saturation UNABLE TO CALCULATE Ferritin 59.50 Vitamin B12 685.0 Folate 6.19 Impressions: Abdomen/Pelvis CT 08/19/18 00:00 IMPRESSION: 1. There is mild thickening of the urinary bladder wall with enlargement of the prostate and fat stranding about the bladder, prostate, and seminal vesicles, findings consistent with cystitis and/or prostatitis. Redd elate with urinalysis. 2. Diverticulosis without evidence of acute diverticulitis. Chest X-Ray 08/19/18 06:09 IMPRESSION: 1. Mild left basilar atelectasis suspected. 2. Otherwise, the lungs are grossly clear. Assessment & Plan - Diagnosis (1) Acute UTI Is this a current diagnosis for this admission?: Yes Plan: This is likely UTI following Esquivel catheter removal 3 days ago for treatment of postoperative urinary retention. - UA c/f UTI - Blood cultures no growth at 1 day - Urine cultures pending. - Admission CT abdomen/pelvis consistent with cystitis - WBC remains elevated on 08/20 despite IV Rocephin - Fever curve: temp stable Plan - Continue Ceftriaxone for now (re-ordered on 08/20 AM) - Follow up on urine culture, adjust per speciation and sensivity - Consider Flomax - D/c-ed IVF (2) Iron deficiency anemia Is this a current diagnosis for this admission?: Yes Plan: Noted on iron studies this admission - Unclear if patient has recent colonoscopy, will follow up - Continue PO Iron for now (3) GERD (gastroesophageal reflux disease) Is this a current diagnosis for this admission?: Yes Plan: COntinue Prevacid (4) HTN (hypertension) Qualifiers: Hypertension type: essential hypertension Qualified Code(s): I10 - Essential (primary) hypertension Is this a current diagnosis for this admission?: Yes Plan: Given improvement in BP today, will re-start Norvasc 10mg daily - Holding home lisinopril for now - Time Time Spent with patient: Less than 15 minutes Anticipated discharge: Home Within: within 48 hours
[2018-08-20] MEDS ORDERED: CEFTRIAXONE 1 GM/D5W RTU 1 GM/50 ML RTUPB IV SCH (14:30)
[2018-08-20] MEDS: AMLODIPINE BESYLATE 10 MG TABLET PO SCH (15:09)
[2018-08-20] MEDS: PROMETHAZINE HCL INJ 25 MG/1 ML VIAL IV PRN (21:25)
[2018-08-20] MEDS: ATORVASTATIN CALCIUM 20 MG TABLET PO SCH (21:26)
[2018-08-21 04:58] LABS: ABSOLUTE EOSINOPHILS # (AUTO) 0.1 10^3/uL (0.0-0.6); ABSOLUTE LYMPHOCYTES (AUTO) 1.7 10^3/uL (0.5-4.7); ABSOLUTE MONOCYTES (AUTO) 1.2 10^3/uL (0.1-1.4); ABSOLUTE NEUT (AUTO) 14.7 10^3/uL (1.7-8.2); BASOPHILS % (AUTO) 0.2 % (0-2); EOSINOPHILS % (AUTO) 0.3 % (0-6); HEMATOCRIT 31.6 % (37.9-51.0); HEMOGLOBIN 10.9 g/dL (13.5-17.0); LYMPHOCYTES % (AUTO) 9.8 % (13-45); MEAN CORPUSCULAR HEMOGLOBIN 29.7 pg (27.0-33.4); MEAN CORPUSCULAR HGB CONC 34.4 g/dL (32.0-36.0); MEAN CORPUSCULAR VOLUME 86 fl (80-97); PLATELET COUNT 279 10^3/uL (150-450); RED BLOOD COUNT 3.66 10^6/uL (4.35-5.55); RED CELL DISTRIBUTION WIDTH 13.9 % (11.5-14.0); SEGMENTED NEUTROPHILS % (AUTO) 82.7 % (42-78); TOTAL CELLS COUNTED % (AUTO) 100 %; WHITE BLOOD COUNT 17.8 10^3/uL (4.0-10.5)
[2018-08-21] MEDS: HEPARIN SOD (PORCINE) 5,000 UNIT/ML 1 ML SYRINGE SUBCUT SCH ×3 (05:11→21:36)
[2018-08-21] MEDS: LANSOPRAZOLE 15 MG TAB.RAP.DR PO SCH ×2 (05:38→18:26)
[2018-08-21] MEDS: ACETAMINOPHEN 325 MG TABLET PO PRN ×2 (05:38→21:40)
[2018-08-21] MEDS: DOCUSATE SODIUM 100 MG CAPSULE PO SCH (10:59)
[2018-08-21] MEDS: AMLODIPINE BESYLATE 10 MG TABLET PO SCH (10:59)
[2018-08-21] MEDS: FAMOTIDINE 20 MG TABLET PO SCH ×2 (10:59→21:39)
[2018-08-21] MEDS: MULTIVITAMIN TABLET PO SCH (10:59)
[2018-08-21] MEDS: FERROUS SULFATE 325 MG TABLET PO SCH (10:59)
[2018-08-21] MEDS: CIPROFLOXACIN HCL 500 MG TABLET PO SCH ×2 (12:02→21:39)
--- NOTE | 2018-08-21 16:12 | PDOC PROGRESS REPORT ---
Subjective Progress Note for:: 08/21/18 Subjective:: No overnight events. Reports urinary urgency has subsided. Complaining more of slow urinary stream, which has not happened previously. Denies fevers, chills, abdominal pain, NV. Tolerating POs. NO other complaints. supportive at bedside. Reason For Visit: UTI Physical Exam Vital Signs: Temp Pulse Resp BP Pulse Ox 98 F 68 16 127/82 H 99 08/21/18 12:00 08/21/18 15:54 08/21/18 15:54 08/21/18 12:00 08/21/18 15:54 Intake & Output 08/20/18 08/21/18 08/22/18 06:59 06:59 06:59 Intake Total 1999 3325 Output Total 500 400 Balance 1500 2925 Weight 87.2 kg 88.3 kg General appearance: PRESENT: no acute distress, well-developed, well-nourished, other Head exam: PRESENT: normocephalic Mouth exam: PRESENT: moist Respiratory exam: PRESENT: unlabored. ABSENT: tachypnea, wheezes Cardiovascular exam: PRESENT: +S1, +S2. ABSENT: tachycardia GI/Abdominal exam: PRESENT: soft. ABSENT: tenderness Gentrourinary exam: ABSENT: scrotal swelling, urethral discharge Extremities exam: ABSENT: +1 edema Musculoskeletal exam: PRESENT: full ROM Neurological exam: PRESENT: alert, awake, CN II-XII grossly intact Psychiatric exam: PRESENT: appropriate affect, normal mood Skin exam: PRESENT: dry, intact Results Laboratory Results: 08/21/18 04:28 08/20/18 06:02 08/21/18 04:28 WBC 17.8 H RBC 3.66 L Hgb 10.9 L Hct 31.6 L MCV 86 MCH 29.7 MCHC 34.4 RDW 13.9 Plt Count 279 Seg Neutrophils % 82.7 H Lymphocytes % 9.8 L Monocytes % 7.0 Eosinophils % 0.3 Basophils % 0.2 Absolute Neutrophils 14.7 H Absolute Lymphocytes 1.7 Absolute Monocytes 1.2 Absolute Eosinophils 0.1 Absolute Basophils 0.0 08/19/18 07:15 Clean Catch Midstream Urine Culture - Final NO GROWTH 2 DAYS Impressions: Abdomen/Pelvis CT 08/19/18 00:00 IMPRESSION: 1. There is mild thickening of the urinary bladder wall with enlargement of the prostate and fat stranding about the bladder, prostate, and seminal vesicles, findings consistent with cystitis and/or prostatitis. Correlate with urinalysis. 2. Diverticulosis without evidence of acute diverticulitis. Chest X-Ray 08/19/18 06:09 IMPRESSION: 1. Mild left basilar atelectasis suspected. 2. Otherwise, the lungs are grossly clear. Assessment & Plan - Diagnosis (1) Acute UTI Is this a current diagnosis for this admission?: Yes Plan: This is likely UTI following Esquivel catheter removal 3 days ago for treatment of postoperative urinary retention. - UA c/f UTI - Blood cultures no growth at 2 days - Urine cultures negative - Admission CT abdomen/pelvis consistent with cystitis OR prostatitis - WBC downtrending on 08/21, remains elevated at 17,000 - Fever curve: now afebrile Plan - Received Ceftriaxone, however changed to Cipro 500mg BID - Discussed that duration of abx could be anywhere from 2 weeks (cystitis) to 6 weeks (prostatitis) - Should follow up with Urologist at [facility] after discharge to discuss duration of therapy; may need repeat CT scan - Ordered Flomax IF tolerates Cipro and symptomatic improvement with Flomax, would D/C on 08/22/18 (2) Iron deficiency anemia Is this a current diagnosis for this admission?: Yes Plan: Noted on iron studies this admission - Continue PO Iron for now - Should have colonoscopy given age (3) GERD (gastroesophageal reflux disease) Is this a current diagnosis for this admission?: Yes Plan: COntinue Prevacid (4) HTN (hypertension) Qualifiers: Hypertension type: essential hypertension Qualified Code(s): I10 - Essential (primary) hypertension Is this a current diagnosis for this admission?: Yes Plan: BP normatensive, continue Norvasc 10mg daily - Holding home lisinopril for now (5) Urinary stream slowing Is this a current diagnosis for this admission?: Yes Plan: Ordered Flomax on 08/21. Follow up with outpatient Urology at [facility] - Time Time Spent with patient: 15-24 minutes Anticipated discharge: Home Within: within 24 hours - LIkely d/c on 08/22
[2018-08-21] MEDS: TAMSULOSIN HCL 0.4 MG CAP.SR.24H PO SCH (18:26)
[2018-08-21] MEDS: ATORVASTATIN CALCIUM 20 MG TABLET PO SCH (21:39)
[2018-08-22 04:59] LABS: ABSOLUTE EOSINOPHILS # (AUTO) 0.1 10^3/uL (0.0-0.6); ABSOLUTE LYMPHOCYTES (AUTO) 1.4 10^3/uL (0.5-4.7); ABSOLUTE MONOCYTES (AUTO) 0.6 10^3/uL (0.1-1.4); BASOPHILS % (AUTO) 0.4 % (0-2); HEMATOCRIT 30.3 % (37.9-51.0); HEMOGLOBIN 10.4 g/dL (13.5-17.0); LYMPHOCYTES % (AUTO) 19.6 % (13-45); MEAN CORPUSCULAR HEMOGLOBIN 29.5 pg (27.0-33.4); MEAN CORPUSCULAR HGB CONC 34.4 g/dL (32.0-36.0); MEAN CORPUSCULAR VOLUME 86 fl (80-97); MONOCYTES % (AUTO) 8.5 % (3-13); PLATELET COUNT 316 10^3/uL (150-450); RED BLOOD COUNT 3.53 10^6/uL (4.35-5.55); SEGMENTED NEUTROPHILS % (AUTO) 70.5 % (42-78); TOTAL CELLS COUNTED % (AUTO) 100 %; WHITE BLOOD COUNT 7.1 10^3/uL (4.0-10.5)
[2018-08-22] MEDS: HEPARIN SOD (PORCINE) 5,000 UNIT/ML 1 ML SYRINGE SUBCUT SCH ×2 (05:05→13:35)
[2018-08-22] MEDS: LANSOPRAZOLE 15 MG TAB.RAP.DR PO SCH ×2 (05:05→17:05)
[2018-08-22] MEDS: FAMOTIDINE 20 MG TABLET PO SCH (09:21)
[2018-08-22] MEDS: AMLODIPINE BESYLATE 10 MG TABLET PO SCH (09:21)
[2018-08-22] MEDS: DOCUSATE SODIUM 100 MG CAPSULE PO SCH (09:22)
[2018-08-22] MEDS: MULTIVITAMIN TABLET PO SCH (09:22)
[2018-08-22] MEDS: FERROUS SULFATE 325 MG TABLET PO SCH (09:22)
[2018-08-22] MEDS: CIPROFLOXACIN HCL 500 MG TABLET PO SCH (09:22)
[2018-08-22] MEDS: ONDANSETRON HCL INJ/PF 4 MG/2 ML SDV IV PRN (09:43)
[2018-08-22 15:30] VITALS: BP 108/57
[2018-08-22] MEDS: TAMSULOSIN HCL 0.4 MG CAP.SR.24H PO SCH (17:05)
--- NOTE | 2018-08-23 12:54 | PDOC DISCHARGE SUMMARY ---
General - Admit/Disc Date/PCP Admission Date/Primary Care Provider: 08/19/18 09:20 VICTOR HUGO DAMICO MD Discharge Date: 08/22/18 - Discharge Diagnosis (1) Acute urinary retention Is this a current diagnosis for this admission?: Yes Summary: The patient experienced recent urinary retention following a hemorrhoidectomy. On admission he was found to have fever and a large amount of white blood cells in his urine. Urine culture was submitted but was no growth. The patient was started on ciprofloxacin and showed significant improvement. He was also started on Flomax. His Esquivel catheter was removed and he was able to void successfully. After several days of IV antibiotic therapy he was afebrile with improvement in his white blood cell count. I was able to discharge him home with antibiotic therapy. Because this is most likely a prostatitis I did give him a 2-week prescription with a refill. He should be able to see his urologist at [facility] within the 2-week window and they can further determine ongoing antibiotic therapy or not. I did provide prescriptions for the ciprofloxacin and Flomax. (2) Prostatitis Is this a current diagnosis for this admission?: Yes Summary: With significant white blood cells present in the urine and negative urine culture the patient likely has prostatitis. An extended course of ciprofloxacin was prescribed. The patient does have follow-up with his urologist at [facility] and they will determine exactly how long of a course and if any intervention is required. He was able to void prior to discharge. - Additional Information Resuscitation Status: Full Code Discharge Diet: Cardiac Discharge Activity: Activity As Tolerated, Balance Activity w/Rest Prescriptions: Ciprofloxacin HCl [Cipro 500 mg Tablet] 500 mg PO Q12 14 Days #28 tablet Tamsulosin HCl [Flomax 0.4 mg Cap.sr] 0.4 mg PO PCSUPPER 30 Days #30 cap.sr.24h Home Medications: Acetaminophen [Tylenol Extra Strength 500 mg Tablet] 1,000 mg PO Q8HP PRN 08/19/18 Amlodipine Besylate [Norvasc 10 mg Tablet] 10 mg PO DAILY 08/19/18 Cetirizine HCl [Zyrtec 10 mg Tablet] 10 mg PO DAILY 08/19/18 Colchicine [Colcrys 0.6 mg Tablet] 0.6 mg PO DAILY 08/19/18 Docusate Sodium [Colace 100 mg Capsule] 100 mg PO BID 08/19/18 Ferrous Sulfate [Feosol 325 mg Tablet] 325 mg PO [id number] 08/19/18 Lisinopril [Prinivil 40 mg Tablet] 40 mg PO DAILY 08/19/18 Melatonin 10 mg PO HSP PRN 08/19/18 Omeprazole 40 mg PO DAILY 08/19/18 Oxycodone HCl [Oxy-Ir 5 mg Tablet] 5 mg PO Q4HP PRN 08/19/18 Pravastatin Sodium [Pravachol] 80 mg PO QHS 08/19/18 Ciprofloxacin HCl [Cipro 500 mg Tablet] 500 mg PO Q12 14 Days #28 tablet 08/22/18 Tamsulosin HCl [Flomax 0.4 mg Cap.sr] 0.4 mg PO PCSUPPER 30 Days #30 cap.sr.24h 08/22/18 History of Present Illness History of Present Illness: ARA RAMOS is a 68 year old male with complex medical history including hypertension, hyperlipidemia and lung cancer with partial lobectomy. He recently underwent hemorrhoidectomy and required a Esquivel catheter for urinary retention. The catheter was removed approximately 3 days prior to his presentation to this facility. The patient presented to our emergency department with urinary retention, fever and elevated white blood cell count. A new Esquivel catheter was placed. He was started on antibiotics with IV fluid and referred to the hospitalist for admission Hospital Course Hospital Course: The patient had a benign hospital course. With intravenous ciprofloxacin and oral Flomax the patient became afebrile and his white cell count improved. He had no discomfort. After several days the Esquivel catheter was removed. He was able to void successfully. Once that occurred he was discharged home with Flomax and ciprofloxacin. He will follow-up with his urologist at [facility]. They are aware of his hospitalization and so follow-up appointment should be easy to obtain. The patient will sign a medical record release so that his records can be sent to his physicians prior to his follow-up appointment. Physical Exam Vital Signs: Temp Pulse Resp BP Pulse Ox 98.4 F 78 17 108/57 L 98 08/22/18 16:34 08/22/18 16:34 08/22/18 16:34 08/22/18 16:34 08/22/18 16:34 Intake & Output 08/21/18 08/22/18 08/23/18 06:59 06:59 06:59 Intake Total 3325 1062 Output Total 400 Balance 2925 1062 Weight 88.3 kg 84.9 kg General appearance: PRESENT: no acute distress, cooperative, well-developed Head exam: PRESENT: normocephalic Respiratory exam: PRESENT: clear to auscultation julio, symmetrical, unlabored. ABSENT: rales, rhonchi, wheezes Cardiovascular exam: PRESENT: RRR, +S1, +S2 GI/Abdominal exam: PRESENT: normal bowel sounds, soft. ABSENT: tenderness Neurological exam: PRESENT: alert, awake, oriented to person, oriented to place, oriented to time, oriented to situation, CN II-XII grossly intact Psychiatric exam: PRESENT: normal mood. ABSENT: agitated, anxious Focused psych exam: ABSENT: restlessness Results Laboratory Results: 08/22/18 04:03 08/20/18 06:02 08/22/18 04:03 WBC 7.1 RBC 3.53 L Hgb 10.4 L Hct 30.3 L MCV 86 MCH 29.5 MCHC 34.4 RDW 14.0 Plt Count 316 Seg Neutrophils % 70.5 Lymphocytes % 19.6 Monocytes % 8.5 Eosinophils % 1.0 Basophils % 0.4 Absolute Neutrophils 5.0 Absolute Lymphocytes 1.4 Absolute Monocytes 0.6 Absolute Eosinophils 0.1 Absolute Basophils 0.0 08/19/18 07:15 Clean Catch Midstream Urine Culture - Final NO GROWTH 2 DAYS Impressions: Abdomen/Pelvis CT 08/19/18 00:00 IMPRESSION: 1. There is mild thickening of the urinary bladder wall with e nlargement of the prostate and fat stranding about the bladder, prostate, and seminal vesicles, findings consistent with cystitis and/or prostatitis. Correlate with urinalysis. 2. Diverticulosis without evidence of acute diverticulitis. Chest X-Ray 08/19/18 06:09 IMPRESSION: 1. Mild left basilar atelectasis suspected. 2. Otherwise, the lungs are grossly clear. Qualifiers - * PATIENT BEING DISCHARGED WITH ANY OF THE FOLLOWING DIAGNOSIS: No Plan Discharge Plan: As above Time Spent: Less than 30 Minutes
== END 2018-08-22 17:37 | disposition home or self-care (01) | DRG 696 ==
LOC: ER 05:25 → EH 09:20 → 4W 17:09
PROVIDERS: ADMIT Internal Medicine; ATTEND Internal Medicine
DX: R33.9 Retention of urine, unspecified (principal); N39.0 Urinary tract infection, site not specified; C34.90 Malignant neoplasm of unspecified part of unspecified bronchus or lung; N41.9 Inflammatory disease of prostate, unspecified; I10 Essential (primary) hypertension; K21.9 Gastro-esophageal reflux disease without esophagitis; E78.5 Hyperlipidemia, unspecified; D64.9 Anemia, unspecified; M10.9 Gout, unspecified; Z90.2 Acquired absence of lung [part of]; Z87.891 Personal history of nicotine dependence
CPT/HCPCS: 36415; 71045; 74177; 80048; 80053; 81001; 82607; 82728; 82746; 83540; 83550; 83605; 85025; 85045; 87040; 87086; 87804; 94799; 96361; 96365; 96375; 99285; J0696; J1644; J1885; J2405; J2550; J3490; J7030

== ENCOUNTER 2019-07-21 02:31 | Emergency (ER) | payer MEDICARE, OTHER ==
[2019-07-21] MEDS ORDERED: ONDANSETRON HCL INJ/PF 4 MG/2 ML SDV IV ONE (04:05)
[2019-07-21 04:07] LABS: APPEARANCE,URINE SLIGHTLY-CLOUDY; BILIRUBIN,URINE NEGATIVE (NEGATIVE); COLOR,URINE YELLOW; GLUCOSE, URINE NEGATIVE (NEGATIVE); KETONES,URINE NEGATIVE (NEGATIVE); LEUKOCYTE ESTERASE,URINE SMALL (NEGATIVE); NITRITE,URINE NEGATIVE (NEGATIVE); PROTEIN,URINE 30 mg/dL (NEGATIVE); URINE SPECIFIC GRAVITY 1.024; UROBILINOGEN,URINE NEGATIVE mg/dL (<2.0)
[2019-07-21 04:59] LABS: ABSOLUTE LYMPHOCYTES (AUTO) 1.8 10^3/uL (0.5-4.7); ABSOLUTE MONOCYTES (AUTO) 1.7 10^3/uL (0.1-1.4); ABSOLUTE NEUT (AUTO) 11.9 10^3/uL (1.7-8.2); BASOPHILS % (AUTO) 0.2 % (0-2); HEMATOCRIT 38.6 % (37.9-51.0); HEMOGLOBIN 13.5 g/dL (13.5-17.0); LYMPHOCYTES % (AUTO) 11.8 % (13-45); MEAN CORPUSCULAR HEMOGLOBIN 29.7 pg (27.0-33.4); MEAN CORPUSCULAR VOLUME 85 fl (80-97); MONOCYTES % (AUTO) 11.1 % (3-13); PLATELET COUNT 226 10^3/uL (150-450); RED BLOOD COUNT 4.55 10^6/uL (4.35-5.55); RED CELL DISTRIBUTION WIDTH 14.6 % (11.5-14.0); SEGMENTED NEUTROPHILS % (AUTO) 76.9 % (42-78); TOTAL CELLS COUNTED % (AUTO) 100 %; WHITE BLOOD COUNT 15.5 10^3/uL (4.0-10.5)
[2019-07-21 05:07] LABS: ALBUMIN 4.8 g/dL (3.5-5.0); ALKALINE PHOSPHATASE 89 U/L (38-126); ANION GAP 16 (5-19); ASPARTATE AMINO TRANSFERASE 29 U/L (17-59); BILIRUBIN,DIRECT 0.3 mg/dL (0.0-0.4); BILIRUBIN,TOTAL 1.1 mg/dL (0.2-1.3); BLOOD UREA NITROGEN 15 mg/dL (7-20); CALCIUM 9.9 mg/dL (8.4-10.2); CARBON DIOXIDE 22 mmol/L (22-30); CHLORIDE 103 mmol/L (98-107); GLUCOSE 115 mg/dL (75-110); POTASSIUM 4.1 mmol/L (3.6-5.0); TOTAL PROTEIN 8.2 g/dL (6.3-8.2)
[2019-07-21] MEDS ORDERED: CEFTRIAXONE INJ 1000 MG VIAL IM ONE (05:53)
[2019-07-21] MEDS ORDERED: GENTAMICIN SULFATE INJ 80 MG/2 ML VIAL IM STA (05:53)
[2019-07-21] MEDS ORDERED: OXYCODONE-ACETAMINOPHEN 5-325 MG TABLET PO ONE (05:54)
[2019-07-21] MEDS ORDERED: PROMETHAZINE HCL 25 MG TABLET PO ONE (05:54)
--- NOTE | 2019-07-21 06:00 | ER Document Report ---
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 IN LAST 30 DAYS: No - HPI Onset: Other - Symptoms began around 3 days prior but worsened last night with fever 101 which resolved after a shower and Tylenol Onset/Duration: Sudden Quality of pain: Burning, Cramping, Other - Pubic pain Pain Level: 2 Associated symptoms: Fever, Other - Prepubic pain Exacerbated by: Movement Similar symptoms previously: No Recently seen / treated by doctor: No - Related Data Allergies/Adverse Reactions: No Known Allergies Allergy (Verified 07/21/19 02:41) Past Medical History - General Information source: Patient, Relative - Social History Smoking Status: Former Smoker Cigarette use (# per day): No Chew tobacco use (# tins/day): No Smoking Education Provided: No Frequency of alcohol use: Occasional Family History: Reviewed & Not Pertinent, CAD Patient has suicidal ideation: No Patient has homicidal ideation: No - Past Medical History Cardiac Medical History: Reports: Hx Hypercholesterolemia, Hx Hypertension Pulmonary Medical History: Reports: Hx Pneumonia Neurological Medical History: Denies: Hx Seizures Renal/ Medical History: Denies: Hx Peritoneal Dialysis Malignancy Medical History: Reports Hx Lung Cancer GI Medical History: Reports: Hx Gastroesophageal Reflux Disease Past Surgical History: Reports: Hx Bowel Surgery, Other - Partial Lobectomy, HERNIA REPAIR, HEMRRHOID BANDING, BLEEDING ULCER - Immunizations Immunizations up to date: Yes Hx Diphtheria, Pertussis, Tetanus Vaccination: Yes Review of Systems - Review of Systems Constitutional: Fever, Malaise, Weakness EENT: No symptoms reported Cardiovascular: No symptoms reported Respiratory: No symptoms reported Gastrointestinal: Abdominal pain - suprapubic pain Genitourinary: Burning, Dysuria, Hematuria, Urgency Male Genitourinary: No symptoms reported Musculoskeletal: No symptoms reported Skin: No symptoms reported Hematologic/Lymphatic: No symptoms reported Neurological/Psychological: No symptoms reported Physical Exam - Vital signs Vitals: Temp Pulse Resp BP Pulse Ox 97.8 F 115 H 20 134/77 H 99 07/21/19 02:36 07/21/19 02:36 07/21/19 02:36 07/21/19 02:36 07/21/19 02:36 - Abdominal Inspection: Normal Distension: No distension Bowel sounds: Normal Tenderness: Tender, Other - Pubic pain Course - Re-evaluation Re-evalutation: 07/21/19 06:00 Patient was given IM Rocephin and gentamicin and p.o. Percocet and Phenergan reports patient able to tolerate the Percocet in the past. - Vital Signs Vital signs: Temp Pulse Resp BP Pulse Ox 98.1 F 115 H 20 134/77 H 99 07/21/19 05:15 07/21/19 02:36 07/21/19 02:36 07/21/19 02:36 07/21/19 02:36 - Laboratory Result Diagrams: 07/21/19 04:38 07/21/19 04:38 Laboratory results interpreted by me: 07/21/19 07/21/19 07/21/19 03:17 04:38 04:38 WBC 15.5 H RDW 14.6 H Lymph % (Auto) 11.8 L Absolute Neuts (auto) 11.9 H Absolute Monos (auto) 1.7 H Glucose 115 H Urine Protein 30 H Urine Blood MODERATE H Ur Leukocyte Esterase SMALL H Critical Care Note - Critical Care Note Total time excluding time spent on procedures (mins): 30 Discharge - Discharge Clinical Impression: Hemorrhagic cystitis, Fever Condition: Fair Disposition: HOME, SELF-CARE Additional Instructions: Return to the ER if symptoms persist or worsen; take medicines as directed encourage fluids and Motrin and Tylenol for fever and pain Prescriptions: Levofloxacin [Levaquin 750 mg Tablet] 500 mg PO DAILY #10 tablet Oxycodone HCl/Acetaminophen [Percocet 5-325 mg Tablet] 1 tab PO Q4H PRN #15 tablet PRN Reason: Referrals: VICTOR HUGO DAMICO MD [Primary Care Provider] - Follow up as needed
[2019-07-21] MEDS ORDERED: CEFTRIAXONE INJ 1000 MG VIAL IV ONE (06:20)
[2019-07-21 06:51] VITALS: BP 158/83
== END 2019-07-21 06:56 | disposition home or self-care (01) ==
LOC: ER 02:31
DX: N30.91 Cystitis, unspecified with hematuria (principal); R50.9 Fever, unspecified; I10 Essential (primary) hypertension; Z87.891 Personal history of nicotine dependence
CPT/HCPCS: 99285; 96372; 96375; 96365; 36415; 87086; 83690; 85025; 87088; 80053; 81001; 87186; J1580; A9270 ×2; J0696; J2405